=== PATIENT | female | born 1995 | race Caucasian/White ===

== ENCOUNTER 2020-11-18 10:59 | Emergency (ER) | payer OTHER ==
[~2020-11-18] VITALS: Ht 165.1 cm; Wt 64.5 kg
[2020-11-18] MEDS ORDERED: birth control (11:17)
--- OUTSIDE RECORDS SUMMARY | 2020-11-18 11:25 | CCD ---
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 Name Role Phone Hospital Lab, [facility] Unavailable Unavailable DARWIN MORALES MD Unavailable Unavailable DARWIN MORALES MD Unavailable Unavailable PIPDARWIN GROSSMAN MD Unavailable Unavailable DARWIN MORALES MD Unavailable Unavailable PIPDARWIN GROSSMAN MD Unavailable Unavailable NON, PHYSICIAN STAFF Unavailable Unavailable Chepe, J Modesto PA-C Unavailable Unavailable Chepe, J Modesto PA-C Unavailable Unavailable Chepe, J Modesto PA-C Unavailable Unavailable Chepe, J Modesto PA-C Unavailable Unavailable Chepe, J Modesto PA-C Unavailable Unavailable Chepe, J Modesto PA-C Unavailable Unavailable Chepe, J Modesto PA-C Unavailable Unavailable Chepe, J Modesto PA-C Unavailable Unavailable Chepe, J Modesto PA-C Unavailable Unavailable Chepe, J Modesto PA-C Unavailable Unavailable Chepe, J Modesto PA-C Unavailable Unavailable Re-disclosure Warning The records that you are about to access may contain information from federally-assisted alcohol or drug abuse programs. If such information is present, then the following federally mandated warning applies: This information has been disclosed to you from records protected by federal confidentiality rules (42 CFR part 2). The federal rules prohibit you from making any further disclosure of this information unless further disclosure is expressly permitted by the written consent of the person to whom it pertains or as otherwise permitted by 42 CFR part 2. A general authorization for the release of medical or other information is NOT sufficient for this purpose. The Federal rules restrict any use of the information to criminally investigate or prosecute any alcohol or drug abuse patient.The records that you are about to access may contain highly sensitive health information, the redisclosure of which is protected by Article 27-F of the [facility] Public Health law. If you continue you may have access to information: Regarding HIV / AIDS; Provided by facilities licensed or operated by the [facility] Office of Mental Health; or Provided by the [facility] Office for People With Developmental Disabilities. If such information is present, then the following [facility] mandated warning applies: This information has been disclosed to you from confidential records which are protected by state law. State law prohibits you from making any further disclosure of this information without the specific written consent of the person to whom it pertains, or as otherwise permitted by law. Any unauthorized further disclosure in violation of state law may result in a fine or custodial sentence or both. A general authorization for the release of medical or other information is NOT sufficient authorization for further disc losure. Allergies and Adverse Reactions Type Description Substance Reaction Status Data Source(s ) Drug Class PENICILLINS Penicillin Rash [facility] Encounters Encounter Providers Location Date Indications Data Source(s ) Emergency Attender: DARWIN MORALES MD 2020 04:13:00 PM EST - 11/17/2020 11:24:00 PM EST Elevated white blood cell count, unspecified [facility] Elevated white blood cell count, unspeci fied Patient discharged. Outpatient Attender: [facility] 11/17/2020 01:5 7:00 PM [facility] Emergency Attender: Modesto LENTZCConsultant: STAFF NO N 11/17/2020 11:40:00 AM EST - 11/17/2020 05:53:00 PM EST [facility] Patient discharged. Medications Medication Brand Name Start Date Product Form Dose Route Admi nistrative Instructions Pharmacy Instructions Status Indications Reaction Description Data Source(s) Acetaminophen 325 MG Oral Tablet acetaminophen (TYLENO L) tablet 650 mg acetaminophen (TYLENOL) tablet 650 mg 11/17/2020 10:30:00 PM EST 65 0 mg Oral completed 650 mg, Oral, O nce, Lizzette 11/17/20 at 2230, For 1 dose
Maximum daily dose of acetaminophen from all sources 75 mg/kg/day
[facility] Medication administered onsite Insurance Providers Payer name Policy type / Coverage type Policy ID Covered republican ID Covered republican's relationship to easton Policy [place] Plan Information [facility] [id number] Self [id number] [facility] [employer] - O/P [id number] [id number] [facility] [employer] - O/P [id number] 19 [id number] [facility] [id number] SF2 [id number] [facility] [id number] SP [id number] [facility] [id number] [place] [id number] Self [id number] [employer] [place] [id number] S [id number] [facility] [id number] SF2 [id number] Problems, Conditions, and Diagnoses Code Display Name Description Problem Type Effective Dates Data Source(s) R19.02 Left upper quadrant abdominal swelling, mass and lump Left upper quadrant abdominal swelling, mass and lump Diagnosis 11/17/2020 08:10:00 PM [facility] D72.829 Elevated white blood cell count, unspeci fied Elevated white blood cell count, unspecified Diagnosis 11/17/2020 08:10:00 PM [facility] 2 weeks rash, CP, SOB, N/V/D, abdominal pain - r/o hemangioma 2 weeks rash, CP, SOB, N/V/D, abdominal pain - r/o hemangioma Diagnosis 2020 08:10:00 PM [facility] Results ID Date Data Source [id number] 11/18/2020 10:04:00 AM [facility] [address] [place] [address] PHONE: [phone] FAX: [phone] Name .................. : TRAVIS FUCHS Acct Number.................. : [id number] ROOM. ................. : TR-02 MR Number ................... : [id number] Stay type ............. : E/R Discharge Date......... ... : 11/17/20 Admit Date ....... .. : 11/17/20 Admit Phys .................... : CHEPE LETY Date of ....... : 1995 Family Phys ................... : NON STAFF Phone .................. : [phone] Age ................................ : 25 Film# .................. .:[id number] Sex ................................. : F Unsigned transcriptions are preliminary reports and do not represent a medical or legal document CT ABD & PELVIS W/ IV ONLY [id number] COMPLETE:11/17/20 19:34 [facility] 4136 Reason(s): N/V/D w/ elevated WBC CT OF THE ABDOMEN AND PELVIS WITH CONTRAST: INDICATION: Generalized abdominal pain. FINDINGS: There is normal contrast-enhanced CT appearance of the liver, pancreas, adrenal glands and kidneys. The spleen contains a well-circumscribed 4.4 cm low attenuation lesion that is not a simple cyst. Late phase of enhancement may have missed the peripheral nodule enhancement of a hemangioma. No gallbladder wall thickening or biliary duct dilatation. The visualized bowel is normal in caliber. There is liquid stool throughout the colon and rectum. No bowel wall thickening is appreciated. The appendix is normal. The bladder and pelvic organs appear normal. No acute osseous abnormality. No lymphadenopathy. IMPRESSION: 1. There is a 4.4 cm lesion in the spleen. This is not a simple cyst and is not definitively a hemangioma. Differential considerations include hemangioma, malignancy, less likely infection or prior infarct. Page 1 of 2 [facility] [address] [place] [address] PHONE: [phone] FAX: [phone] Name .................. : TRAVIS FUCHS Acct Number.................. : [id number] ROOM. ................. : TR-02 MR Number ................... : [id number] Stay type ............. : E/R Discharge Date......... ... : 11/17/20 Admit Date ......... : 11/17/20 Admit Phys .................... : CHEPE LETY Date of ....... : 1995 Family Phys ................... : NON STAFF Phone .................. : [phone] Age ................................ : 25 Film# .................. .:[id number] Sex ................................. : F Unsigned transcriptions are preliminary reports and do not represent a medical or legal document CT ABD & PELVIS W/ IV ONLY [id number] COMPLETE:11/17/20 19:34 [facility] 4136 Reason(s): N/V/D w/ elevated WBC I would recommend further evaluation starting with nonemergent abdominal ultrasound. This lesion may be difficult to evaluate by ultrasound g iven the superior location within the spleen. Follow up 3-phase CT scan of the abdomen in 3 months also suggested. 2. Liquid stool throughout the colon and rectum. Correlate with symptoms of diarrhea. While performing the above CT examination, radiation dose reduction was accomplished utilizing automated exposure control, adjusting of the mA and kV based on the patient's body size and/or the use of imperative reconstructive techniques. CT dose: 953.4 mGycm Electronically Reviewed and Signed By Augustin Pryor M.D. , 11/18/20 10:04, [place] Transcribe Initials: DZ , Transcribe Date: 11/18/20 02:38, Dictation Date: Copy for: SRI CHAKRABORTY via fax Copy for: CHEPE Arita via fax Copy for: EMERGENCY DEPT via modem Copy for: 710 MED REC DISCHARGED Page 2 of 2 Name Value Range Interpretation Code Description Data Bonnie rce(s) Supporting Document(s) ID Date Data Source [id number] 11/18/2020 10:03:00 AM EST [facility] [address] [place] [address] PHONE: [phone] FAX: [phone] Name .................. : TRAVIS FUCHS Acct Number.................. : [id number] ROOM. ................. : TR-02 MR Number ................... : [id number] Stay type ............. : E/R Discharge Date......... ... : 11/17/20 Admit Date ....... .. : 11/17/20 Admit Phys .................... : CHEPE DAVIDSON Date of ....... : 1995 Family Phys ................... : NON STAFF Phone .................. : [phone] Age ................................ : 25 Film# .................. .:[id number] Sex ................................. : F Unsigned transcriptions are preliminary reports and do not represent a medical or legal document CT CTA CHEST NON-CORONARY W C [id number] COMPLETE:11/17/20 19:34 [facility] 4135 Reason(s): cp w/ sob w/ exertion CTA OF THE CHEST WITH CONTRAST: INDICATION: Chest pain with shortness of breath on exertion. FINDINGS: The neck base is clear. The lungs are clear. The heart is normal in size. The thoracic aorta is normal in size. No lymphadenopathy. No pulmonary embolism. Please see separate report for upper abdominal details. No acute osseous abnormality. IMPRESSION: No pulmonary embolism. No acute pulmonary process. While performing the above CT examination, radiation dose reduction was accomplished utilizing automated exposure control, adjusting of the mA and kV based on the patient's body size and/or the use of imperative reconstructive techniques. CT dose: 953.4 mGycm Contrast agent in mL: 75 Isovue 370 Method of administration: Intravenous Electronically Reviewed and Signed By Page 1 of 2 [place] [address] PHONE: [phone] FAX: [phone] Name .................. : TRAVIS FUCHS Acct Number.................. : [id number] ROOM. ................. : TR- MR Number ................... : [id number] Stay type ............. : E/R Discharge Date......... ... : 11/17/20 Admit Date ......... : 11/17/20 Admit Phys .................... : CHEPE LETY Date of ....... : 1995 Family Phys ................... : NON STAFF Phone .................. : [phone] Age .......................... ...... : 25 Film# .................. .:[id number] Sex ................................. : F Unsigned transcriptions are preliminary reports and do not represent a medical or legal document CT CTA CHEST NON- CORONARY W C 85637 COMPLETE:11/17/20 19:34 [facility] 4135 Reason(s): cp w/ sob w/ exertion Augustin Pryor M.D. , 11/18/20 10:03, [place] Transcribe Initials: BRYANT , Transcribe Date: 11/18/20 02:36, Dictation Date: Copy for: SRI CHAKRABORTY via fax Copy for: CHEPE Arita via fax Copy for: EMERGENCY DEPT via mode Copy for: 710 MED REC DISCHARGED Page 2 of 2 Name Value Range Interpretation Code Description Data Bonnie rce(s) Supporting Document(s) ID Date Data Source [id number] 11/17/2020 11:40:00 AM EST [facility] 1 OrderSheet [facility] Emergency Department [address] [place] [address] Phone #: ext- [phone] 11/17/2020 11:27 [id number] Sex: F : 1995 Age: 25yWEIGHT:64.4 kg (S) HEIGHT:65 inches (S) BMI:23.7ALLERGIES: PenicillinsCHIEF COMPLAINT: "hurts all over", possible, COVID-19 exposure:DIAGNOSIS: Problem, Cystitis, LeukocytosisLAB ORDERSOrder Description Priority Entered Acknowledged InitialedCBC w Diff STAT 12:04 11/17/2020 12:40 Matthew Browne R.N. P.A.-C;CMP STAT 12:04 11/17/2020 12:40 Matthew Browne R.N. P.A.-C;Lipase STAT 12:04 11/17/2020 12:40 Matthew Browne R.N. P.A.-C;PT/PTT STAT 12:04 11/17/2020 12:40 Matthew Browne R.N. P.A.-C;Troponin-T STAT 12:04 11/17/2020 12:40 Matthew Browne R.N. P.A.-C;D-Dimer STAT 12:04 11/17/2020 12:40 Matthew Browne R.N. P.A.-C;TSH STAT 12:04 11/17/2020 12:40 Matthew Browne R.N. P.A.- C;Influenza Nasal A B STAT 12:04 11/17/2020 12:40 Matthew Browne R.N. P.A.-C;Rapid Strep Screen STAT 12:04 11/17/2020 12:40 Matthew Browne R.N. P.A.-C;HCG Serum Quant STAT 12:04 11/17/2020 12:40 Matthew Browne R.N. P.A.-C;CORONAVIRUS STAT 12:04 11/17/2020 12:40 Hollie, 2 OrderSheet [facility] Emergency Department [address] [place] [address] Phone #: ext- [phone] 11/17/2020 11:27 Patient: SHILA ROBLES Sex: F : 1995 Age: 25yCOVID-19 Matthew Bean R.N.(Symptomatic as P.A.-C;Defined by CDC)([id number])( Unknown if FristTest) (Hospitalized)(Unknown if) (NotResident inCongregate CareSetting) (Employedin HealthcareSetting)Lactic Acid STAT 13:42 11/17/2020 13:49 Matthew Browne R.N. P.A.-C;Blood Culture STAT 14:33 11/17/2020 15:01 Frieda,q10m X2 (Sched Matthew Garcia RN14:33 11/17/2020) P.A.-C;Blood Culture STAT 14:33 11/17/2020 15:01 Frieda,q10m X2 (Sched Matthew Garcia RN14:43 11/17/2020) P.A.- C;Culture, Urine STAT 14:33 11/17/2020 14:36 Frieda,(Urine, Clean Matthew Garcia RNCatch) P.A.-C;Urinalysis (Clean STAT 14:34 11/17/2020 14:36 Frieda,Catch) Matthew Garcia RN P.A.-C;Monospot STAT 15:39 11/17/2020 15:54 Matthew Browne R.N. P.A.-C;COVID-19 CAH STAT 15:54 11/17/2020 16:33 Hollie,(Symptomatic as Matthew Bean R.N.Defined by CDC) P.A.-C;([id number]) (FirstTest) (NotHospitalized) (Not) (NotResident inCongregate CareSetting) (NotEmployed inHealthcare Setting) NOTES: Potential transfer 3 OrderSheet [facility] Emergency Department [address] [place] [address] Phone #: ext- [phone] 11/17/2020 11:27 Patient: SHILA ROBLES Sex: F : 1995 Age: 25yDIAGNOSTIC STUDY ORDERSOrder Description Priority Entered Acknowledged InitialedCT CTA CHEST STAT 13:25 11/17/2020 13:27 Hollie,(NONCOR) W CON Matthew Bean R.N.INC PP P.A.-C;(Oxygen?(No))(IV?(Yes)) Reason for Study: cp w/ sob w/ exertionCT Abd PEL W/ IV STAT 13:25 11/17/2020 13:27 Hollie,Contrast Only Matthew Bean R.N.(Oxygen?(No)) P.A.-C;(IV?(Yes)) Reason for Study: N/V/D w/ elevated WBCMEDICATION/IV/DRIP/FLUID ORDERSOrder Description Priority Entered Acknowledged InitialedIV NS : Bolus 1000 12:04 11/17/2020 12:42 Hollie,mL, then 75 mL/hr Matthew Bean R.N. P.A.-C;Zofran IVP 4 mg 12:04 11/17/2020 Initialed: 12:41 Vikas Browne R.N. Refused: 12:41 Zofran IVP 4 mg was P.A.-C; refused by patient because nausea is gone.Benadryl 25 mg IVP 12:04 11/17/2020 12:42 Sorbero,X1 dose: 25 mg Matthew Bean R.N.(NOW x1) P.A.- C;Rocephin 16:11 11/17/2020 16:33 Sorbero,(1gm/50mL) IVPB Matthew Bean R.NMaren1000 mg with P.A.-C;Dextrose 50 mlspike bag (D5W) Reason for ordering with alerts: Benefits outweigh risks -- 16:11 11/17/2020 Matthew Hernandez.AMaren-CGENERAL ORDERSOrder Description Priority Entered Acknowledged InitialedBlood Pressure 12:04 11/17/2020 12:08 Jessica EDMonitor Cathy Yao P.A.-C; Roll1Uyejfre Monitor 12:04 11/17/2020 12:08 Maynard ED(continuous) Cathy Yao 4 OrderSheet [facility] Emergency Department [address] [place] [address] Phone #: ext- [phone] 11/17/2020 11:27 Patient: SHILA ROBLES Sex: F : 1995 Age: 25y P.A.-C; Yuel2LXM 12:04 11/17/2020 12:08 Jessica ED Cathy Yao P.A.-C; Chpm2FVP 12:04 11/17/2020 12:40 Matthew BrowneN. P.A.-C;Obtain Old EKG 12:04 11/17/2020 12:40 Matthew Browne.N. P.A.-C;Obtain Old Records 12:04 11/17/2020 12:40 Matthew Browne.N. P.A.-C;Pulse oximeter 12:04 11/17/2020 12:40 Hollie(Continuous) Matthew HeckNMaren P.A.-C;Saline Lock 12:04 11/17/2020 12:40 Sorbero, Matthew Bean R.N., P.A.-C;Vitals 12:04 11/17/2020 12:40 Matthew Browne R.N., P.A.-C;[Electronically signed by Vikas Browne R.N. (19:08 0 11/17/2020)][Electronically signed by Matthew Fierro P.A.-C (22:46 11/17/2020)][Electronically locked by Vikas Browne R.N. (19:08 11/17/2020)] Name Value Range Interpretation Code Description Data Bonnie rce(s) Supporting Document(s) ID Date Data Source [id number] 11/17/2020 11:40:00 AM EST [facility] 1 Medication Reconciliation Report [facility] Emergency Department [address] [place] [address] Phone #: ext- [phone] 11/17/2020 11:27 Patient: SHILA ROBLES Sex: F : 1995 Age: 25yWeight: 64.4 kgHeight/Length: 65 in.BMI: 23.7ALLERGIES: PenicillinsThe patient's Home Medications are listed below:THE FOLLOWING MEDICATIONS NEED TO BE RECONCILED: Control PillsThe source(s) of the original Home Medication information:Not obtained.The following Medications were given to the patient in the Emergency Department:IV NS IV Fluids bolus 0, then 1000 mL/hr, administered: 12:42 1Benadryl [IVP] IVP 25 mg, administered: 12:42 11/17/2020IV NS IV Fluids bolus 0, then 75 mL/hr, administered: 13:48 1ROCEPHIN (1GM/50ML) [IVPB] IVPB bolus 0, then 1 gm 100 mL/hr, administered: 16:33 11/17/2020The following Medications were prescribed to the patient:None. Name Value Range Interpretation Code Description Data Bonnie rce(s) Supporting Document(s) ID Date Data Source [id number] 11/17/2020 11:40:00 AM EST [facility] 1 Medication Administration Record [facility] Emergency Department [address] [place] [address] Phone #: ext- [phone] 11/17/2020 11:27 Patient: SHILA ROBLES Sex: F : 1995 Age: 25yWeight: 64.4 kgHeight/Length: 65 inBMI: 23.7ALLERGIES: Penicillins Date/Time Medication Administered Medication OrderedStart IV NS IV NS : Bolus 1000 mL, then 7512:42 11/17/2020 Dose: IV Fluids mL/Vikas Loyd, R.N. Rate: 1000 mL/hr over 1 hour(s)---- Dispensed: 1000 mL bagStop Site: #1 left AC13:48 11/17/2020Vikas valentin, R.N.Start IV NS IV NS : Bolus 1000 mL, then 7513:48 11/17/2020 Dose: IV Fluids mL/Vikas Loyd, R.N. Rate: 75 mL/hr over 13 hour(s)---- Dispensed: 1000 mL bagStop Site: #1 left AC17:39 11/17/2020Vikas valentin, R.N.Given BENADRYL [IVP] (DIPHENHYDRAMINE Benadryl 25 mg IVP X1 dose: 2512:42 11/17/2020 HCL) mg (NOW x1)Vikas Browne, R.N. Dose: 25 mg IVP Site: #1 left ACStart ROCEPHIN (1GM/50ML) [IVPB] Rocephin (1gm/50mL) IVPB 258666:33 11/17/2020 (CEFTRIAXONE SODIUM) mg with Dextrose 50 ml spike Vikas Richards R.N. Dose: 1 gm IVPB (D5W)---- Rate: 100 mL/hr over 30 minute(s)Stop Dispensed: 50 mL bag17:38 11/17/2020 Site: #1 left Vikas Love R.N. Name Value Range Interpretation Code Description Data Bonnie rce(s) Supporting Document(s) ID Date Data Source [id number] 11/17/2020 11:40:00 AM EST [facility] 1 General Instructions [facility] Emergency Department [address] [place] [address] Phone #: ext- [phone] 11/17/2020 11:27 Patient: SHILA ROBLES Sex: F : 1995 Age: 25ySevere leukocytosis. No bandemia.Acute cystitis with hematuria. ;abnormal CT of the abdomen and pelvis. (Noted lesion on spleen (? infections vs malagnant vs hemagioavs prior infarct).). ADDITIONAL INFORMATIONFemale Bladder Infection (Child)A bladder infect ion is when bacteria cause the bladder to be inflamed. The bladder holds urine. Atube called the urethra takes urine from the bladder out of the body. Sometimes bacteria can travel upthe urethra. This causes the infection. Girls have bladder infections more often than boys. This isbecause the urethra is much shorter in girls than in boys.The most common cause of bladder infections in children is bacteria from the bowels. The bacteriacan get onto the skin around the urethra, and then into the urine. From there it can travel up to thebladder. This can happen because of: Poor cleaning after using the toilet or during a diaper change Not completely emptying the bladder Constipation that prevents the bladder from emptying completely Not drinking enough fluids to urinate often Irritation of the urethra from soaps or tight clothesSymptoms of a bladder infection include the need to urinate often and urgently. It may be painful. Theurine may have a strong smell. It may be dark, tinted with blood, or cloudy. Your child may not beable to hold urine and may wet the bed or her clothes. Your child may also have a fever and bellypain. Some children don't have symptoms. A baby may be fussy and not able to be soothed. Shemay cry when urinating. Your baby may also feed less or be less active.A bladder infection is treated with antibiotics. The healthcare provider may also prescribe a medicine to treat pain. Children get better from a bladder infection quickly.In many cases a bladder infection will come back. It's important to take steps to prevent it (seebelow). 2 General Instructions [facility] Emergency Department [address] [place] [address] Phone #: ext- [phone] 11/17/2020 11:27 Patient: SHILA ROBLES Sex: F : 1995 Age: 25yHome careThe healthcare provider will prescribe medicine to treat the infection. Follow all instructions for givingthis medicine to your child. Use the medicine as instructed every day until it is gone. Don't stop givingit to your child if she feels better.Don't give aspirin (or medicine that contains aspirin) to a chi ld younger than age 19 unless directedby your child's provider. Taking aspirin can put your child at risk for Erika syndrome. This is a rare butvery serious disorder. It most often affects the brain and the liver.For children ages 2 and up: If your child's healthcare provider says it's OK, you can giveacetaminophen or ibuprofen for pain, fever, fussiness, or discomfort. If your child has chronic liver orkidney disease, talk with the healthcare provider before giving these medicines. Also talk with theprovider if your child has ever had a stomach ulcer or GI bleeding, or is taking blood thinners.General care Keep track of how often your child urinates. Note the urine color and amount. Tell your child to urinate often. Tell her to completely empty her bladder each time. This will help flush out bacteria. Have your child wear loose clothes and cotton underwear. Make sure that your child drinks enough fluids. Give your child cranberry juice if advised by the healthcare provider.Prevention Make sure your child wipes from front to back after using the toilet. Wipe your baby from front to back during diaper changes. Make sure diapers aren't tight. If you use cloth diapers, use cotton or wool protectors rather than nylon or rubber pants. Change soiled diapers right away. Make sure your child drinks plenty of fluids. Or make sure your baby feeds often. This is to p revent dehydration. Make sure your child urinates when needed, and does not hold it in. Don't give your child bubble baths. They can irritate the urethra.Follow-up careFollow up with your child's healthcare provider, or as advised. If a culture was done, you will be told of 3 General Instructions [facility] Emergency Department [address] [place] [address] Phone #: ext- [phone] 11/17/2020 11:27 Patient: SHILA ROBLES Sex: F : 1995 Age: 25yany findings that may affect your child's care.Call [phone] any of these occur: Trouble breathing Trouble waking up Fainting or loss of consciousness Fast heart rate SeizureWhen to seek medical adviceCall your child's healthcare provider right away if any of these occur: Fever of 100.4F (38C) or higher, or as directed Symptoms don't get better after 24 hours of treatment Vomiting or inability to keep down medicine Pain gets worse Pain in the low back, belly, or side Foul-smelling urine Yellow color to the skin or eyes (jaundice) [id number] [employer]. [address] [place] [address], [place] [address]. All rights reserved. This information is not intended as asubstitute for professional medical care. Always follow your healthcare professional's instructions.Blood in the Urine 4 General Instructions [facility] Emergency Department [address] [place] [address] Phone #: ext- [phone] 11/17/2020 11:27 Patient: SHILA ROBLES Sex: F : 1995 Age: 25yBlood in the urine (hematuria) has many possible causes. If it occurs after an injury (such as a caraccident or fall), it is most often a sign of bruising to the kidney or bladder. Common causes of bloodin the urine include urinary tract infections, kidney stones, inflammation, tumors, or certain otherdiseases of the kidney or bladder. Menstruation can cause blood to appear in the urine sample, but itis not coming from the urinary tract.If only a tiny (trace) amount of blood is present, it will show up on the urine test, even though the urinemay be yellow and not pink or red. This may occur with any of the above conditions, as well as heavyexercise or high fever. In this case, your healthcare provider may want to repeat the urine test onanother day. This will show if there is still blood in the urine. If there is, then other tests can be doneto find out the cause.Home careFollow these home care guidelines: If your urine does not look bloody (pink, brown, or red) then you don't need to restrict your activity in any way. If you can see blood in your urine, rest and don't do any strenuous activity until your next exam. Don't use aspirin, blood thinners, or anti-platelet or anti-inflammatory medicines. These include ibuprofen and naproxen. These thin the blood and may increase bleedin g. Call your healthcare provider to talk about using these medicines.Follow- up care 5 General Instructions [facility] Emergency Department [address] [place] [address] Phone #: ext- [phone] 11/17/2020 11:27 [id number] Sex[facility] F : 1995 Age: 25yFollow up with your healthcare provider, or as advised. If you were injured and had blood in yoururine, you should have a repeat urine test in 1 to 2 days. Contact your provider for this test.A radiologist will review any X-rays that were taken. You will be told of any new findings that mayaffect your care.When to seek medical adviceCall your healthcare provider right away if any of these occur: Bright red blood or blood clots in the urine (if you did not have this before) Weakness, dizziness or fainting New groin, belly, or back pain Fever of 100.4F (38C) or higher, or as directed by your provider Repeated vomiting Bleeding from the nose or gums or easy bruising [id number] [employer]. [address] [place] [address]. All rights reserved. This information is not intended as asubstitute for professional medical care. Always follow your healthcare professional's instructions. You have been given the following additional information: Bladder Infection, Female (Child) Hematuria(Electronically signed by Matthew Fierro P.A.-C 11/17/2020 22:46) Name Value Range Interpretation Code Description Data Bonnie rce(s) Supporting Document(s) ID Date Data Source [id number] 11/17/2020 11:40:00 AM EST [facility] 1 Clinical Report - Nurses [facility] Emergency Department [address] [place] [address] Phone #: ext- [phone] 11/17/2020 11:27 Patient: SHILA ROBLES Sex: F : 1995 Age: 25yTRIAGEArrived by private vehicle. Historian: patient.Acuity: LEVEL 3.Chief Complaint: CHILLS, MUSCLE ACHES, HEADACHE, COUGH, NAUSEA, VOMITING, DIARRHEAand RASH.Alert. No acute distress.Onset. (2 weeks ago). ( PT says 2 weeks ago she began having nausea, ROLDAN, a dry cough, and a rash onher chest and legs. The symptoms have worsened over the past 2 weeks and she says she gets out ofbreath easily. She was concerned that it was not improving so she decided to get checked out.).Treatment SUPERVISOR PAIRING AND INSPECTING:None.SEPSIS SCREEN: SIRS SCREEN NEGATIVE. SEPSIS SCREEN NEGATIVE. No suspected or confirmedsigns of infection present.RENZO COMA SCORE: 15- eyes open- spontaneous (4); best verbal response- oriented (5); bestmotor response- obeys commands (6). --11:35 11/17/20 Rachelle Ruff R.N.11:28 11/17/20. BP: 114/67. MAP: 82. HR: 79. RR: 18. O2 saturation: 100%. Temp: 98.1 F. Pain levelnow: 0/10. --11:35 11/17/20 Rachelle Ruff R.N.Weight: 64.4 kg stated. Height/Length: 65 inches Per Patient. BMI: 23.7. --11:33 11/17/20 Rachelle Ruff R.N.MedicationsBirth Control Pills. --11:32 11/17/20 Rachelle Ruff R.N.AllergiesPenicillins. --11:32 11/17/20 Rachelle uRff R.N.PROBLEMS:Migraine Headache. --11:33 11/17/20 Rachelle Ruff R.N.ADDITIONAL SURGERIES:Jaw surgery. --11:33 11/17/20 Rachelle Ruff R.N.Hist ory 2 Clinical Report - Nurses [facility] Emergency Department [address] [place] [address] Phone #: ext- [phone] 11/17/2020 11:27 Patient: SHILA ROBLES Sex: F : 1995 Age: 25y PAST MEDICAL HX: Immunizations: up-to-date. Last normal menstrual period- 1 weeks ago. Denies current . SOCIAL HX: Never smoker. No alcohol use or drug use. She was offered HIV testing but declined and hepatitis C testing but declined. She has not traveled outside the [place] Infectious disease exposure: The patient was not exposed to C-diff, MRSA, VRE, CRE or Coronavirus. SELF HARM ASSESSMENT: Self harm assessment was performed. The patient answered "no" to the question(s) "Have you recently felt down, depressed, or hopeless?", "Do you have thoughts of harming or killing yourself?", "Do you have a plan for harming or killing yourself?", "Have you recently had thoughts about harming or killing others?", "Do you have any dangerous items in your possession?", "Have you noticed less interest or pleasure in doing things?", "Are you here because you tried to hurt yourself?" and "Have you ever tried to hurt yourself before today?". ABUSE ASSESSMENT: No report of abuse. NUTRITIONAL RISK ASSESSMENT: The nutritional risk assessment revealed no deficiencies. FUNCTIONAL ASSESSMENT: Functional assessment: no impairments noted. LEARNING NEEDS ASSESSMENT: The learning needs assessment revealed no barriers. FALL RISK ASSESSMENT: Fall risk assessment completed. No risk factors identified. SKIN INTEGRITY ASSESSMENT: Skin integrity risk assessment completed. No skin integrity risk identified. --11:35 11/17/20 Rachelle Ruff R.N. Interventions Identification and allergy band on patient. To treatment room. --11:35 11/17/20 Rachelle Ruff R.N.PHYSICAL IVKYINROCZ30:53 11/17/20. Ambulatory to room. Patient gowned.GENERAL / NEURO / PSYCH: Alert. Oriented X 4. Appears in no acute distress.HEENT: No facial asymmetry noted. Mucous membranes are pink.RESPIRATORY: Respirations not l abored. Chest nontender. Breath sounds within normal limits.CVS: Capillary refill less than 2 seconds. Pulses within normal limits.GI / : Abdomen soft and nontender and normal bowel sounds.SKIN: Skin intact. Skin is warm and dry. Generalized well-demarcated, petechial skin rash present.Normal skin turgor. --11:53 11/17/20 Vikas Browne R.N.NURSING PROGRESS NOTESReassurance given. Two patient identifiers checked. Call light placed in reach. Patient ready forevaluation- PA notified. --11:35 11/17/20 Rachelle Ruff R.N. 11:54 11/17/20. Patient gowned. Reassurance given. Two patient identifiers checked. Call light 3 Clinical Report - Nurses [facility] Emergency Department [address] [place] [address] Phone #: ext- [phone] 11/17/2020 11:27 Patient: SHILA ROBLES Sex: F : 1995 Age: 25yplaced in reach. Bed placed in lowest position. Brakes of bed on. --11:54 11/17/20 Vikas Russo R.N.Patient ready for evaluation- PA notified. --11:54 11/17/20 Vikas Browne R.N.EKG time: (12:16 11/17/2020). EKG was performed by a tech and shown to the PA. --12:22 11/17/20 Cathy Alvarez ER Mxtn352:29 11/17/20. BP: 109/65. MAP: 79. HR: 92. RR: 20. O2 saturation: 100%. --12:30 11/17/20 Cathy Lepe ER Cxao535:41 11/17/2020 Site #1 started via IV in the left antecubital space with an 20g angiocath, with aseptictechnique and good blood return; one attempt. Saline lock flushed with 10 mL saline. --12:41 11/17/20Vikas Browne R.N.12:41 11/17/2020 Zofran IVP 4 mg was refused by patient because nausea is gone. --12:41 11/17/20Vikas Browne R.NMaren12:42 11/17/2020 Started bag #1 1000 mL IV Fluids IV NS; at 1000 mL/hr over 1 hour(s) via site #1 via IVpump. Allergies verified and confirmed 5 rights. IV patency established. IV site checked: no pain, redness,or swelling. IV flushed thoroughly pre- and post-medication administration. Information reviewed withpatient including reason for taking this medication, signs of allergic reaction and precautions. Verbalizesunderstanding. --12:42 11/17/20 Vikas Browne R.NMaren12:42 11/17/2020 Benadryl (diphenhydrAMINE HCl) IVP 25 mg given over 2 minute(s) via site #1. Allergiesverified and confirmed 5 rights. IV patency established. IV site checked: no pain, redness, or swelling. IVflushed thoroughly pre- and post-medication administration. IVP given by RN. Information reviewed withpatient including reason for taking this medication, signs of allergic reaction, precautions and sedativewarning. Verbalizes understanding. --12:42 11/17/20 Vikas Browne, R.NMaren13:00 11/17/20. BP: 107/74. MAP: 85. HR: 92. RR: 17. O2 saturation: 100%. --13:00 11/17/20 Jessica VogelCathyNORTHER[facility] Bzup743:32 11/17/20. Reassurance given. Reassessment acuity: LEVEL 3. The patient reports nocomplaints, she is calm and resting quietly and she has had no adverse reaction. Overall patient status isimproved- she states feels better.RESPIRATORY: No respiratory distress. Breath sounds normal.CVS: Normal sinus rhythm noted.SKIN: Skin is warm and dry. Skin color within normal limits. Two patient identifiers checked. Call lightplaced in reach. Bed placed in lowest position. Brakes of bed on. --13:43 11/17/20 Vikas Browne R.N.13:48 11/17/2020 Started bag #2 1000 mL IV Fluids IV NS; at 75 mL/hr over 13 hour(s) via site #1 via IVpump. Allergies verified and confirmed 5 rights. IV patency established. IV site checked: no pain, redness,or swelling. IV flushed thoroughly pre- and post-medication administration. Information reviewed withpatient including reason for taking this medication, signs of allergic reaction and precautions. Verbalizes 4 Clinical Report - Nurses [facility] Emergency Department [address] [place] [address] Phone #: ext- [phone] 11/17/2020 11:27 Patient: SHILA ROBLES Sex: F : 1995 Age: 25y understanding. --13:48 11/17/20 Vikas Browne RMarenNMaren 13:48 11/17/2020 IV Fluids IV NS via IV site #1 Discontinued: bag #1 completed. Total amount infused: 1000 mL. IV patency established. IV site checked: no pain, redness, or swelling. IV flushed thoroughly. --13:48 11/17/20 Vikas Browne RMarenNMaren 14:14 11/17/20. BP: 107/66. MAP: 79. HR: 97. RR: 19. O2 saturation: 100%. --14:14 11/17/20 Jessica Prieto ch, MYRIAM Morgan Tech1 Critical value relayed by lab. Critical value received by Radha. Lactate level: 2.5. Critical value read back. Verified lab result. PA notifed of critical value. Orders were not received. --16:01 11/17/20 Radha Malave, KIMBERLEE 16:33 11/17/2020 Started 1 gm of ROCEPHIN (1GM/50ML) (cefTRIAXone Sodium) IVPB in bag #1 50 mL; at 100 mL/hr over 30 minute(s) via site #1. via IV pump. Allergies verified and confirmed 5 rights. IV patency established. IV site checked: no pain, redness, or swelling. IV flushed thoroughly pre- and post-medication administration. Information reviewed with patient including reason for taking this medication, signs of allergic reaction and precautions. Verbalizes understanding. --16:33 11/17/20 Vikas Browne R.N. 17:00 11/17/20. BP: 105/64. MAP: 77. HR: 104. RR: 18. O2 saturation: 99%. --17:00 11/17/20 Radha Malave RN 17:38 11/17/2020 ROCEPHIN (1GM/50ML) IVPB via IV site #1 Discontinued: bag #1 completed. Total amount infused: 50 mL. IV patency established. IV site checked: no pain, redness, or swelling. IV flushed thoroughly. --17:54 11/17/20 Vikas Browne R.N. 17:39 11/17/2020 IV Fluids IV NS via IV site #1 Discontinued: bag #2 completed. Total amount infused: 300 mL. IV patency established. IV site checked: no pain, redness, or swelling. IV flushed thoroughly. --17:54 11/17/20 Vikas Browne RHeather.DISPOSITION / DISCHARGE 17:00 11/17/20. Transferred to [facility]. Report was given to a nurse via a phone call. Report included information regarding patient's treatment and allergies, current and abnormal vital signs and critical, abnormal or pending labs. Report included treatment information regarding medications given or pending; type and amount of IV fluids total volume infused. All questions were answered. Report was acknowledged and care was transferred. (RIC). Patient's personal items; items were transported with the patient. --17:21 11/17/20 Rachelle Ruff R.N. Condition at departure: improved and stable. The goals identified in the patient's plan of care were met. Fall risk assessment completed. No risk factors identified. Transported via ambulance by commercial artist. --17:43 11/17/20 Vikas Browne R.N. 17:42 11/17/20. BP: 111/60. MAP: 77. HR: 97. RR: 16. O2 saturation: 100%. Temp: 99.2 F. Pain level 5 Clinical Report - Nurses [facility] Emergency Department [address] [place] [address] Phone #: ext- [phone] 11/17/2020 11:27 Patient: SHILA ROBLES Sex: F : 1995 Age: 25y now: 0. --17:43 11/17/20 Vikas Browne R.N. Departure time: 17:53 11/17/2020. --17:53 11/17/20 Vikas Browne R.N.Locked/Released at 11/17/2020 19:08 by Vikas Browne R.N. Name Value Range Interpretation Code Description Data Bonnie rce(s) Supporting Document(s) ID Date Data Source [id number] 11/17/2020 11:40:00 AM [facility] 1 Clinical Report - Physicians/Mid Levels [facility] Emergency Department [address] [place] [address] Phone #: ext [phone] 11/17/2020 11:27 Patient: SHILA ROBLES Sex: F : 1995 Age: 25y Time Seen: 11:41 11/17/2020; initial patient contact, initial documentation. Arrived- By private vehicle. Historian- patient. Disposition decision: 16:22 11/17/2020.HISTORY OF PRESENT ILLNESS Chief Complaint: "HURTS ALL OVER" and possible COVID-19 EXPOSURE. This started about 2 weeks ago and is still present. The patient has had nausea, a cough, fever, chills and muscle aches. She has had a skin rash and headache, vomiting and diarrhea. 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 (PT says 2 weeks ago she began having nausea, ROLDAN, a dry cough, and a rash on her chest and legs. The symptoms have worsened over the past 2 weeks and she says she gets out of breath easily. She was concerned that it was not improving so she decided to get checked out.).REVIEW OF SYSTEMSLast normal menstrual period was 1 week ago. She has had fatigue. No weight loss, photophobia, sinuspain, toothache or weakness. No dizziness, palpitations, calf pain, abdominal pain or bloody stools. Nourinary incontinence, joint pain, enlarged lymph nodes, tick bite or back pain.PAST HISTORYSee nurses notes. Problems: Migraine Headache. Additional Surgeries: Jaw surgery. Immunizations: Immunization status is up-to-date. Medications: Control Pills. Allergies: Penicillins.SOCIAL HISTORYNever smoker. No alcohol use or drug use. Recent travel.ADDITIONAL NOTESThe nursing notes have been reviewed.PHYSICAL EXAM 2 Clinical Report - Physicians/Mid Levels [facility] Emergency Department [address] [place] [address] Phone #: ext- [phone] 11/17/2020 11:27 Patient: SHILA ROBLES Sex: F : 1995 Age: 25y Vital Signs: 11/17/2020 11:28 BP: 114/67. MAP: 82. HR: 79. RR: 18. O2 saturation: 100%. Temp: 98.1 F. Pain level now: 0/10. Have been reviewed. Oxygen saturation normal. Appearance: Alert. No acute distress. Eyes: Eyelids appear normal to inspection. Corneas appear normal to inspection. EOMs intact. Periorbital areas appear normal to inspection. ENT: Normal ENT inspection. Airway intact. TM's normal. Ears normal. Nose normal. Nares normal. Pharynx normal. Moist mucous membranes. Uvula midline. Voice normal. Neck: Normal inspection. Neck supple. CVS: Normal heart rate and rhythm. No JVD present. Pulses normal. Capillary refill normal. Strong peripheral pulses. Heart sounds normal. Pulses: right radial 2+; left radial 2+; right dorsalis pedis 2+; left dorsalis pedis 2+; right posterior tibial 2+; left posterior tibial 2+. Respiratory: Chest normal on inspection. No respiratory distress. Unlabored respirations. Lungs clear. Good chest movement. Breath sounds normal and equal. Chest nontender. Abdomen: Normal inspection. Soft and nontender. Bowel sounds normal. No distention. Skin: Skin warm and dry. No rash. Extremities: Extremities exhibit normal ROM. No lower extremity edema. Neuro: Awake. Alert. Mood/affect normal. Speech normal. No motor deficit. No sensory deficit. Psych: Cognition normal. Thought process and content normal. Insight and judgement normal.LABS, X-RAYS, AND EKGEKG: Normal EKG. Normal sinus rhythm. Rate: 93. Discussed and reviewed wiht/by attending.CT Abdomen - Pelvis: Konstantin mckeon Neal - 11/17/2020 3:35:09 PM1. 4.4 cm lesion in the spleen. This is not a simple cyst and is not definitively a hemangioma.Differentialconsiderations include hemangioma, malignancy, less likely infection, or prior infarct. I would recommend further evaluation starting with nonemergent abdominal ultrasound. This lesion may be difficult to evaluate by ultrasound given the superior locati on within the spleen. Follow-up three-phase CT scan of the abdomen in 3 months also suggested. 2. Liquid stool throughout the colon. The study was interpreted by the radiologist. CTA Pulmonary Arteries: Konstantin mckeon Neal - 11/17/2020 3:30:26 PM nad. The study was interpreted by the radiologist. Laboratory Tests: Urinalysis: (EARL: 11/17/2020 14:45) ( MsgRcvd 11/17/2020 15:32) Final results Test Result Flag Units (Reference) URINALYSIS URINALYSIS SOURCE R COLOR yolis (NORMAL: Yello CLARITY hazy (NORMAL: Clear SPEC GRAVITY 1.025 (1.001 - 1.030 pH 5 (5 - 9) GLUCOSE NORM (NORMAL: Negat BILIRUBIN NEG (NORMAL: Negat KETONE 15 A (NORMAL: Negat PROTEIN 15 (NORMAL: Negat NITRITE NEG (NORMAL: Negat 3 Clinical Report - Physicians/Mid Levels [facility] Emergency Department [address] [place] [address] Phone #: ext- [phone] 11/17/2020 11:27 Patient: SHILA ROBLES Sex: F : 1995 Age: 25y BLOOD 10 A (NORMAL: Negat LEUK EST NEG (NORMAL: Negat UROBILINOGEN NOR (less than 1.0 MICROSCOPIC See Below WBC 1 - 3 (NORMAL: NONE RBC 1 - 3 (NORMAL: NO NE EPITHELIAL MODERATE A (NORMAL: NONE BACTERIA Trace (NORMAL: NONE AMORPH SED 3+ (NORMAL: NONECBC w Diff: (EARL: 11/17/2020 12:15) ( MsgRcvd 11/17/2020 12:32) Final results Test Result Flag Units (Reference) CBC W/AUTOMATED DIFF COMPLETE BLOOD COUNT WBC 17.9 H 10/uL (4.2 - 11.0) RBC 5.31 10/uL (4.20 - 5.40) HEMOGLOBIN 15.5 g/dL (12.0 - 16.0) HEMATOCRIT 44.9 % (37.0 - 47.0) MCV 84.6 fL (81.0 - 101) MCH 29.2 pg (27.0 - 34.0) MCHC 34.5 g/dL (31.0 - 36.0) RDW 10.8 L % (11.5 - 14.5) PLATELETS 365 10/uL (150 - 450) MPV 9.1 fL (7.4 - 10.4) NEUT 90.8 H % (37.0 - 80.0) LYMPH 4.7 L % (25.0 - 40.0) MONO 3.6 % (3.0 - 8.0) EOS 0.3 % (0.0 - 7.0) BASO 0.3 % (0.0 - 2.5) %IG 0.3 H % (0.0 - 0.0) %NRBC 0.0 % (0.0 - 0.0) #NEUT 16.24 H 10/uL (2.00 - 6.90) #LYMPH 0.84 10/uL (0.60 - 3.40) #MONO 0.65 10/uL (0.00 - 0.90) #EOS 0.05 10/uL (0.00 - 0.70) #BASO 0.05 10/uL (0.00 - 0.20) #IG 0.06 10/uL (0.00 - 0.10) #NRBC 0.00 10/uL (0.00 - 0.00) MANUAL DIFF NOT INDICATED RBC MORPH NOT INDICATEDCMP: (EARL: 11/17/2020 12:15) ( MsgRcvd 11/17/2020 13:07) Final results Test Result Flag Units (Reference) COMPREHENSIVE METABOLIC PANEL COMPREHENSIVE METABOLIC PANEL SODIUM 136 mEq/L (134 - 153) POTASSIUM 3.8 mEq/L (3.6 - 5.0) CHLORIDE 99 mEq/L (98 - 107) CO2 24 MEQ/L (22 - 30) GLUCOSE 92 MG/DL (70 - 99) BUN 11 MG/DL (7 - 21) CREATININE 0.9 MG/DL (0.7 - 1.5) BUN/CREAT 12 (8 - 27) TOTAL PROTEIN 6.9 G/DL (6.3 - 8.2) ALBUMIN 4.5 G/DL (3.9 - 5.0) GLOBULIN 2.4 GM/DL (2.4 - 3.2) A/G RATIO 1.9 (0.8 - 2.0) CALCIUM 9.6 MG/DL (8.4 - 10.2) 4 Clinical Report - Physicians/Mid Levels [facility] Emergency Department [address] [place] [address] Phone #: ext- [phone] 11/17/2020 11:27 Patient: SHILA ROBLES Sex: F : 1995 Age: 25y TOTAL BILI <0.7 MG/DL (0.2 - 1.3) ALKALINE PHOS 73 U/L (38 - 126) SGOT/AST 18 U/L (5 - 40) SGPT/ALT 24 U/L (7 - 56) ANION GAP 13.0 mmol/L (8.0 - 16.0) AGE 25 yrs NON-AA GFR >60 mL/min AFR AMER GFR >60 mL/min Male GFR Interprentation 20-49 yrs >60 mL/min Lspzfk38-85 yrs >56 mL/min Normal 60-69 yrs >49 mL/min Normal 70-79yrs>42 mL/min Normal 80 and above >35 mL/min Normal Female GFRInterpretation 20-39 yrs >60 mL/min Normal 40-49 yrs >58 mL/minNormal 50- 59 yrs >51 mL/min Normal 60-69 yrs >45 mL/min Tmntci41-15 yrs >39 mL/min Normal 80 and above >32 mL/min NormalLipase: (EARL: 11/17/2020 12:15) ( MsgRcvd 11/17/2020 13:07) Final results Test Result Flag Units (Reference) LIPASE 17 U/L (13 - 60)PT/PTT: (EARL: 11/17/2020 12:15) ( MsgRcvd 11/17/2020 12:52) Final results Test Result Flag Units (Reference) PROTIME 11.7 SECONDS (11.0 - 15.5) INR 0.82 L (0.93 - 1.23) PTT 23.4 L SECONDS (24.8 - 36.7) \\BLDo\\INR INTERPRETATION\\BLDx\\ Therapeutic range for Coumadin andrelated oral anticoagulants. -International Normalized Ratio (INR): 2.0 - 3.0 for VenousThrombosis, Pulmonary Embolus, Tissue heart valves, Acute CO Atrial Fibrillation, Valvular heart diseaseand recurrent Systemic Embolism. -International Normalized Ratio (INR): 2.5 - 3.5 forMechanical Prosthetic valve.Troponin-T: (EARL: 11/17/2020 12:15) ( [facility] 11/17/2020 12:48) Final results Test Result Flag Units (Reference) TROPONIN T <0.01 NG/ML (0.00 - 0.10) TROPONIN T0.1 ng/ml Recommended as the clinical threshold value forTroponin T.D-Dimer: (EARL: 11/17/2020 12:15) ( [facility] 11/17/2020 12:43) Final results Test Result Flag Units (Reference) D- DIMER QUANT 0.39 ug/mL (0.27 - 0.50)TSH: (EARL: 11/17/2020 12:15) ( [facility] 0 11/17/2020 12:56) Final results Test Result Flag Units (Reference) TSH 2.07 uIU/mL (0.47 - 5.01)Influenza Nasal A B: (EARL: 11/17/2020 12:20) ( [facility] 11/17/2020 13:12) Final results Test Result Flag Units (Reference) INFLUENZA A NEGATIVE (NORMAL: NEGAT INFLUENZA B NEGATIVE (NORMAL: NEGAT INFLUENZA A REENTER NEGATIVE (NORMAL: NEGAT INFLUENZA B REENTER NEGATIVE (NORMAL: NEGAT PROCEDURAL CONTROL VALID KIT LOT # _[id number] 11/17/20.131 . KIT EXP DATE _10.08.21 11/17/20. .The Influenza A utilizing an isothermal nucleic acid amplification technology for thequalitativedetection of influenza A and B viral RNA.Negative results do not preclude influenza virus infection and should 5 Clinical Report - Physicians/Mid Levels [facility] Emergency Department [address] [place] [address] Phone #: ext- [phone] 11/17/2020 11:27 Patient: SHILA ROBLES Sex: F : 1995 Age: 25y not beused as the sole basis for diagnosis, treatment or other patient managementdecisions. Rapid Strep Screen: (EARL: 11/17/2020 12:20) ( MsgRcvd 11/17/2020 13:07) Final results Test Result Flag Units (Reference) RAPID STREP NEGATIVE (NORMAL: NEGAT RAPID STREP REENTER NEGATIVE (NORMAL: NEGAT { PROCEDURAL CONTROL VALID ){ KIT LOT # [id number] ){ KIT EXP DATE 10.08.21 )The Strep A 2 assay utilizes isothermal nucleic acid amplification technology fothe qualitative detection of Group A Strep bacterial nucleic acid in throat swabspecimens.All negative test results no longer need to be confirmed with a culture. Follow-up testing requ iring a culture is necessary if clinical symptoms persist, or inthe event of an acute rheumatic fever outbreak. A culture will need to beordered by the Qualified Medical Provider.Negative results do not preclude infection with Group A Strep and should not beused as the sole basis for treatment. Beta-HCG, Quant Serum: (EARL: 11/17/2020 12:15) ( MsgRcvd 11/17/2020 12:56) Final results Test Result Flag Units (Reference) HCG QUANT <0.5 mIU/mL Interpretation: Less than 5 mU/mL: Negative 6- 10 mU/mL: Borderline (suggest repeat in 48 hours) >10: Positive Approx HCG range (mU/mL) Weeks post LMP 5.4-708 mU/mL 3-4 Weeks 217-44097 mU/mL 5-6 Weeks 4059-802291 mU/mL 7-8 Weeks 82785-110793 mU/mL 9-10 Weeks 72719-64635 mU/mL 12-14 Weeks 67954-80700 mU/mL 15-16 Weeks 8240-91882 mU/mL 17-18 Weeks.PROGRESS AND PROCEDURESCourse of Care: VSS, NAD, AOx3, interacting well and appropriately, no use of accessory muscle, able tospeak full sentences, stable, non-toxic looking. Enter room and pt lying peacefully in bed in NAD. Patient stable. Denies any new issues, concerns, or complaints. Pt c/o N/V/D with flucuating rash with fever, cough, and general malaise. Pt does travel to [place] and does take OCP. sts that she notes CP and SOB with exertion. Will order labs and imaigng for furhter eval. Pending resutls. REviewed results; noted elevated WBC. Noted upper limits normal of d-dimer. Wll consider CTA and abd/pelvis for further eval. Enter room and pt lying ad sleeping peacefully in bed. Discuss with pt and she indicates she understands and agrees. Pending results. Reviewed resutls. Noted findings of spleen. ? malignacy vs infection as these could casue elevated WBC and generla malasie. Will transfer for furhter eval of mass of spleen, ? infectiious casue. Attending agrees. Called [facility] and discussed shaila Barry. Able to do au to accept under Dr. Paez 6 Clinical Report - Physicians/Mid Levels [facility] Emergency Department [address] [place] [address] Phone #: [phone] 11/17/2020 11:27 Patient: SHILA ROBLES Sex: F : 1995 Age: 25y Recieved verbal that pts lactic is 2.5. It is elevated. Transfder for unknown infectious etiolgoy, further eval of lesion of spleen (? source of s/s.) Due to leukocytosis, will rx rocephin IV. Will montior. Pt tolerated medicatio n well. Critical care performed (90 minutes). Time includes: direct patient care, patient reassessment, coordination of patient care, interpretation of data (laboratory data), review of patient's medical records, medical consultation, family consultation regarding treatment decisions and documentation of patient care- see progress notes. Disposition: Benefits, risks and alternatives to transfer explained to patient. Transferred to [facility]. UTI (catheter associated) was not present prior to transfer. Pressure ulcer was not present prior to transfer. Vascular infection (catheter associated) was not present prior to transfer.CLINICAL IMPRESSION Severe leukocytosis. No bandemia. Acute cystitis with hematuria. ; abnormal CT of the abdomen and pelvis. (Noted lesion on spleen (? infections vs malagnant vs hemagioa vs prior infarct).).(Electronically signed by Matthew Fierro P.A.-C 11/17/2020 22:46) Name Value Range Interpretation Code Description Data Bonnie rce(s) Supporting Document(s) ID Date Data Source [id number] 11/17/2020 09:33:00 [place] [address] RESPIRATORY CARE REPORT ==== ---------NAME------- NUMBER SEX AGE ADMIT DISC. XRAY# F/C MICH FUCHS [id number] F 25 11/17/20 11/17/20 [id number] SB4 E/R DATE OF : 1995 M/R# [id number] PH#: [phone] TR-02 LOCATION: EMERGENCY DEPT EKG 29968 COMP LETE:11/17/20 13:54 [place] [id number] PHYSICIAN: CHEPE FIERRO [facility] Name Value Range Interpretation Code Description [facility] Supporting Document(s) ID Date Data Source [id number] 11/17/2020 05:31:00 PM [facility] NOT DETECTEDNOT DETECTED{ PROC EDURAL CONTROL VALID KIT LOT # _[id number] 11/17/20.1730.TAD. . . KIT EXP DATE _12.26.20 11/17/20.TAD. . . NORMAL RANGE IS NOT DETECTEDNEGATIVE RESULTS SHOULD BE TREATED PRESUMPTIVE AND, IF INCONSISTENT WITHCLINICAL SIGNS AND SYMPTOMS OR NECESSARY FOR PATIENT MANAGEMENT, SHOULD BETESTED WITH DIFFERENT AUTHORIZED OR CLEARED MOLECULAR TESTS. NEGATIVE RESULTSDO NOT PRECLUDE SARS-CoV -2 INFECTION AND SHOULD NOT BE USED THE SOLE BASISFOR PATIENT MANAGEMENT DECISIONS. Name Value Range Interpretation Code Description Data [facility] Supporting Document(s) ID Date Data Source [id number] 11/17/2020 03:32:00 PM [facility] Name Value Range Interpretation Code Description Data [facility](s) Supporting Document(s) [facility] COL[facility] yolis NORMAL: Yellow [facility] CLARITY hazy NORMAL: Clear [facility] Specific gravity of Urine by Test strip 1.025 1.001 - 1.030 [facility] pH 5 5 - 9 [facility] Glucose [Mass/volume] in Urine by Test strip NORM NORMAL: Negat [facility] Bilirubin.total [Presence] in Urine by Test strip NEG NORMAL: Negative [facility] Ketones [Presence] in Urine by Test strip 15 NORMAL: Negative [facility] Protein [Mass/volume] in Urine by Test strip 15 NORMAL: Negat [facility] Nitrite [Presence] in Urine by Test strip NEG NORMAL: Negative [facility] BLOOD 10 NORMAL: Negative [facility] Leukocyte esterase [Presence] in Urine by Test strip NEG JA L: Negative [facility] Urobilinogen [Mass/volume] in Urine by Test strip NOR less ruthann n 1.0 mg/dL [facility] MICROSCOPIC See Below [facility] WBC 1 - 3 NORMAL: NONE SEEN [facility] Erythrocytes [#/volume] in Urine by Test strip 1 - 3 NORMAL: NON E SEEN [facility] EPITHELIAL MODERATE NORMAL: NONE SEEN A [facility] Bacteria [Presence] in Urine sediment by Light microscopy Tr vivi NORMAL: NONE SEEN [facility] Amorphous sediment [Presence] in Urine sediment by Light tyesha roscopy 3+ NORMAL: NONE SEEN [facility] ID Date Data Source [id number] 11/17/2020 03:55:00 PM EST [facility] Name Value Range Interpretation Code Description Data Bonnie rce(s) Supporting Document(s) Lactic w Rfx (if elevated) 2.5 mmol/L 0.5-2.0 Above high normal [facility] Called to EDDY BRO @ 1554 by Zhanna Pierson. Resultsread back. ID Date Data Source [id number] 11/17/2020 09:00:00 PM EST [facility] Name Value Range Interpretation Code Description Data Bonnie rce(s) Supporting Document(s) LACTIC ACID (LACTATE) [facility] CALLED TO RADHA 11/17/20 @ 1600 [place] [address] CLIA# [id number] SEE SCANNED REPORT ID Date Data Source [id number] 11/17/2020 01:12:00 PM [facility] Name Value Range Interpretation Code Description Data Bonnie rce(s) Supporting Document(s) Influenza virus A Ag [Presence] in Nasopharynx by Immunoassa y NEGATIVE NORMAL: NEGATIVE [facility] Influenza virus B Ag [Presence] in Nasopharynx by Immunoassa y NEGATIVE NORMAL: NEGATIVE [facility] NEGATIVENEGATIVE PROCEDURAL CO NTROL VALID KIT LOT # _[id number] 11/17/20.Boris. . KIT EXP DATE _10.08.21 11/17/20. .The Influenza A & B assay is a rapid molecular in vitro diagnostic testutilizing an isothermal nucleic acid amplification technology for thequalitative detection of influenza A and B viral RNA.Negative results do not preclude influenza virus infection and should not beused as the sole basis for diagnosis, treatment or other patient managementdecisions. ID Date Data Source [id number] 11/17/2020 01:07:00 PM [facility] Name Value Range Interpretation Code Description Data Bonnie rce(s) Supporting Document(s) RAPID STREP NEGATIVE NORMAL: NEGATIVE [facility] RAPID STREP REENTER NEGATIVE NORMAL: NEGATIVE [facility] { PROCEDURAL CONTROL VALID ){ KIT LOT # [id number] ){ KIT EXP DATE 10.08.21 )The Strep A 2 assay utilizes isothermal nucleic acid amplification technology fothe qualitative detection of Group A Strep bacterial nucleic acid in throat swabspecimens.All negative test results no longer need to be confirmed with a culture. Follow-up testing requiring a culture is necessary if clinical symptoms persist, or inthe event of an acute rheumatic fever outbreak. A culture will need to beordered by the Qualified Medical Provider.Negative results do not preclude infection with Group A Strep and should not beused as the sole basis for treatment. ID Date Data Source [id number] 11/17/2020 04:14:00 PM [facility] Name Value Range Interpretation Code Description Data Bonnie rce(s) Supporting Document(s) MONO TEST NEGATIVE NORMAL: NEGATIVE [facility] MONO REENTER NEGATIVE NORMAL: NEGATIVE [facility] { KIT LOT # [id number] ){ KIT EXP DATE 01.04.21 ){ PROCEDURAL CONTROL VALID ) ID Date Data Source [id number] 11/17/2020 01:07:00 PM [facility] Name Value Range Interpretation Code Description Data Bonnie rce(s) Supporting Document(s) Lipase [Enzymatic activity/volume] in Serum or Plasma 17 U/L 13 - 60 [facility] ID Date Data Source [id number] 11/17/2020 01:07:00 PM [facility] Name Value Range Interpretation Code Description Data Bonnie rce(s) Supporting Document(s) COMPREHENSIVE METABOLIC PANEL [facility] COMPREHENSIVE METABOLIC PANEL Sodium [Moles/volume] in Serum or Plasma 136 mEq/L 134 - 153 [facility] Potassium [Moles/volume] in Serum or Plasma 3.8 mEq/L 3.6 - 5.0 [facility] Chloride [Moles/volume] in Serum or Plasma 99 mEq/L 98 - 107 [facility] Carbon dioxide, total [Moles/volume] in Serum or Plasma 24 MEQ/L 22 - 30 [facility] Glucose [Mass/volume] in Serum or Plasma 92 MG/DL 70 - 99 [facility] BUN 11 MG/DL 7 - 21 [facility] Creatinine [Mass/volume] in Serum or Plasma 0.9 MG/DL 0.7 - 1.5 [facility] BUN/CREAT 12 8 - 27 [facility] Protein [Mass/volume] in Serum or Plasma 6.9 G/DL 6.3 - 8.2 [facility] Albumin [Mass/volume] in Serum or Plasma 4.5 G/DL 3.9 - 5.0 [facility] Globulin [Mass/volume] in Serum by calculation 2.4 GM/DL 2.4 - 3.2 [facility] A/G RATIO 1.9 0.8 - 2.0 [facility] Calcium [Mass/volume] in Serum or Plasma 9.6 MG/DL 8.4 - 10.2 [facility] Bilirubin.total [Mass/volume] in Serum or Plasma <0.7 MG/DL 0.2 - 1.3 [facility] Alkaline phosphatase [Enzymatic activity/volume] in Serum or Plasma 73 U/L 38 - 126 [facility] Aspartate aminotransferase [Enzymatic activity/volume] in Serum or Plasma 18 U/L 5 - 40 [facility] Alanine aminotransferase [Enzymatic activity/volume] in Seru m or Plasma 24 U/L 7 - 56 [facility] Anion gap 3 in Serum or Plasma 13.0 mmol/L 8.0 - 16.0 [facility] AGE 25 yrs [facility] al NON-AA GFR >60 mL/min [facility] ital AFR AMER GFR >60 mL/min [facility] Male GFR In terprentation 20-49 yrs >60 mL/min Normal 50-59 yrs >56 mL/min Normal 60-69 yrs >49 mL/min Normal 70-79yrs >42 mL/min Normal 80 and above >35 mL/min Normal Female GFR Interpretation 20-39 yrs >60 mL/min Normal 40-49 yrs >58 mL/min Normal 50-59 yrs >51 mL/min Normal 60-69 yrs >45 mL/min Normal 70-79 yrs >39 mL/min Normal 80 and above >32 mL/min Normal ID Date Data Source [id number] 11/17/2020 12:56:00 PM [facility] Value Range Interpretation Code Description Data Bonnie rce(s) Supporting Document(s) Choriogonadotropin.intact [Units/volume] in Serum or Plasma <0.5 mIU/ mL [facility] Interpr etation: Less than 5 mU/mL: Negative 6-10 mU/mL: Borderline (suggest repeat in 48 hours) >10: Positive Approx HCG range (mU/mL) Weeks post LMP 5.4-708 mU/mL 3-4 Weeks 217-88346 mU/mL 5-6 Weeks 4059-127207 mU/mL 7-8 Weeks 41650-087042 mU/mL 9-10 Weeks 82479-67179 mU/mL 12-14 Weeks 12976-83684 mU/mL 15-16 Weeks 8240- 01316 mU/mL 17-18 Weeks ID Date Data Source [id number] 11/17/2020 12:56:00 PM [facility] Value Range Interpretation Code Description Data Bonnie rce(s) Supporting Document(s) Thyrotropin [Units/volume] in Serum or Plasma by Detec tion limit <= 0.05 mIU/L 2.07 uIU/mL 0.47 - 5.01 [facility] ID Date Data Source [id number] 11/17/2020 12:52:00 PM [facility] Value Range Interpretation Code Description Data Bonnie rce(s) Supporting Document(s) Prothrombin time (PT) 11.7 SECONDS 11.0 - 15.5 [facility] INR in Platelet poor plasma by Coagulation assay 0.82 0.93 - 1. 23 L [facility] aPTT in Blood by Coagulation assay 23.4 SECONDS 24.8 - 36.7 L [facility] \\BLDo\\INR INTERPRETATION\\BLDx\\ Therapeutic range for Coumadin and related oral anticoagulants. - International Normalized Ratio (INR): 2.0 - 3.0 for Venous Thrombosis, Pulmonary Embolus, Tissue heart valves, Acute CO Atrial Fibrillation, Valvular heart disease and recurrent Systemic Embolism. - International Normalized Ratio (INR): 2.5 - 3.5 for Mechanical Prosthetic valve. ID Date Data Source [id number] 11/17/2020 12:48:00 PM [facility] Name Value Range Interpretation Code Description Data Bonnie rce(s) Supporting Document(s) TROPONIN T <0.01 NG/ML 0.00 - 0.10 [facility] TROPONIN T0.1 ng/ml Recommended as the c linical threshold value forTroponin T. ID Date Data Source [id number] 11/17/2020 12:43:00 PM [facility] Name Value Range Interpretation Code Description Data Bonnie rce(s) Supporting Document(s) Fibrin D-dimer FEU [Mass/volume] in Platelet poor plasma 0.39 ug /mL 0.27 - 0.50 [facility] ID Date Data Source [id number] 11/17/2020 12:32:00 PM [facility] Name Value Range Interpretation Code Description Data Bonnie rce(s) Supporting Document(s) CBC W/AUTOMATED DIFF [facility] COMPLETE BLOOD COUNT Leukocytes [#/volume] in Blood by Automated count 17.9 10^3/uL 4.2 - 11.0 H [facility] Erythrocytes [#/volume] in Blood by Automated count 5.31 10^6/uL 4. 20 - 5.40 [facility] Hemoglobin [Mass/volume] in Blood 15.5 g/dL 12.0 - 16.0 [facility] Hematocrit [Volume Fraction] of Blood by Automated count 44.9 % 3 7.0 - 47.0 [facility] Erythrocyte mean corpuscular volume [Entitic volume] by Auto mated count 84.6 fL 81.0 - 101 [facility] Erythrocyte mean corpuscular hemoglobin [Entitic mass] by Automated count 29.2 pg 27.0 - 34.0 [facility] Erythrocyte mean corpuscular hemoglobin concentration [Mass/volume] by Automated count 34.5 g/dL 31.0 - 36.0 [facility] Erythrocyte distribution width [Ratio] by Automated count 10.8 % 11.5 - 14.5 L [facility] Platelets [#/volume] in Blood by Automated count 365 10^3/uL 150 - 45 0 [facility] Platelet mean volume [Entitic volume] in Blood by Automated count 9.1 fL 7.4 - 10.4 [facility] Neutrophils/100 leukocytes in Blood by Automated count 90.8 % 37. 0 - 80.0 H [facility] Lymphocytes/100 leukocytes in Blood by Manual count 4.7 % 25.0 - 40.0 L [facility] Monocytes/100 leukocytes in Blood by Automated count 3.6 % 3.0 - 8.0 [facility] Eosinophils/100 leukocytes in Blood by Automated count 0.3 % 0.0 - 7.0 [facility] Basophils/100 leukocytes in Blood by Automated count 0.3 % 0.0 - 2.5 [facility] %IG 0.3 % 0.0 - 0.0 H [facility] %NRBC 0.0 % 0.0 - 0.0 [facility] Neutrophils [#/volume] in Blood by Automated count 16.24 10^3/uL 2. 00 - 6.90 H [facility] Lymphocytes [#/volume] in Blood by Automated count 0.84 10^3/uL 0.60 - 3.40 [facility] Monocytes [#/volume] in Blood by Automated count 0.65 10^3/uL 0.00 - 0.90 [facility] Eosinophils [#/volume] in Blood by Automated count 0.05 10^3/uL 0.00 - 0.70 [facility] Basophils [#/volume] in Blood by Automated count 0.05 10^3/uL 0.00 - 0.20 [facility] #IG 0.06 10^3/uL 0.00 - 0.10 [facility] #NRBC 0.00 10^3/uL 0.00 - 0.00 [facility] MANUAL DIFF NOT INDICATED [facility] RBC MORPH NOT INDICATED [facility] ID Date Data Source [id number] 05/25/2020 12:00:00 AM EDT [facility] Name Value Range Interpretation Code Description Data Bonnie rce(s) Supporting Document(s) 2018-nCoV RNA XXX MIRIAM+probe-Imp [facility] This lab was ordered by [employer] and repo rted by [employer]. ID Date Data Source [id number] 05/04/2020 12:00:00 AM EDT [facility] Name Value Range Interpretation Code Description Data Bonnie rce(s) Supporting Document(s) 2018-nCoV RNA XXX MIRIAM+probe-Imp [facility] This lab was ordered by [employer] and repo rted by [employer]. ID Date Data Source [id number] 03/30/2020 12:00:00 AM EDT [facility] Name Value Range Interpretation Code Description Data Bonnie rce(s) Supporting Document(s) 2018-nCoV RNA XXX MIRIAM+probe-Imp [facility] This lab was ordered by [employer] and repo rted by [employer] ID Date Data Source [id number] 03/23/2020 12:00:00 AM EDT [facility] Name Value Range Interpretation Code Description Data Bonnie rce(s) Supporting Document(s) 2018-nCoV RNA XXX MIRIAM+probe-Imp [facility] This lab was ordered by [employer] and repo rted by [employer] ID Date Data Source [id number] 03/17/2020 12:00:00 AM EDT [facility] Name Value Range Interpretation Code Description Data Bonnie rce(s) Supporting Document(s) 2018-nCoV RNA XXX MIRIAM+probe-Imp [facility] This lab was ordered by [employer] and repo rted by [employer]. ID Date Data Source [id number] 02/26/2020 12:00:00 AM EDT [facility] Name Value Range Interpretation Code Description Data Bonnie rce(s) Supporting Document(s) 2018-nCoV RNA XXX MIRIAM+probe-Imp [facility] This lab was ordered by [employer] and repo rted by [employer]. Procedure Social History Code Duration Value Status Description Data Source(s ) Alcohol intake 11/17/2020 12:00:00 AM EST Ex-drinker (finding) comp leted Ex- drinker (finding) [facility] Smoking 11/17/2020 12:00:00 AM EST Never smoker completed Never s [facility] Vital Signs ID Date Data Source [id number] 11/17/2020 11:24:29 PM EST [facility] Name Value Range Interpretation Code Description Data Source(s) WEIGHT RECORDED 142 lb 142 lb [facility] Body height Measured 65 in 65 in [facility] TRANSFER FROM [facility] A [facility]
[2020-11-18 12:06] LABS: BASO % 0.5 % (0.0-1.0); EOS # 0.1 10^3/uL (0.0-0.5); HEMATOCRIT 38.8 % (36.0-47.0); HEMOGLOBIN 13.1 g/dl (12.0-15.5); LYMPH # 1.1 10^3/uL (1.5-5.0); LYMPH % 17.9 % (24.0-44.0); MEAN CORPUSCULAR HEMOGLOBIN 29.1 pg (27.0-33.0); MEAN CORPUSCULAR HGB CONC 33.8 g/dl (32.0-36.5); MEAN CORPUSCULAR VOLUME 86.2 fl (80.0-96.0); MONO # 0.3 10^3/uL (0.0-0.8); MONO % 5.3 % (2.0-8.0); NEUTROPHILS # 4.5 10^3/uL (1.5-8.5); NEUTROPHILS % 74.8 % (36.0-66.0); PLATELET COUNT, AUTOMATED 326 10^3/uL (150-450)
[2020-11-18 12:13] LABS: AMORPHOUS SEDIMENT SMALL (NEGATIVE); APPEARANCE, URINE HAZY (CLEAR); BACTERIA, URINE AUTO 1+ (NEGATIVE); BILIRUBIN, URINE AUTO NEGATIVE (NEGATIVE); BLOOD, URINE BLOOD NEGATIVE (NEGATIVE); COLOR, URINE YELLOW (YELLOW); GLUCOSE, URINE (UA) AUTO NEGATIVE (NEGATIVE); KETONE, URINE AUTO NEGATIVE (NEGATIVE); LEUKOCYTE ESTERASE, URINE AUTO NEGATIVE (NEGATIVE); MUCUS, URINE SMALL (NEGATIVE); NITRITE, URINE AUTO NEGATIVE (NEGATIVE); PROTEIN, URINE AUTO 1+ mg/dL (NEGATIVE); RBC, URINE AUTO 1 /HPF (0-3); SPECIFIC GRAVITY URINE AUTO 1.031 (1.002-1.035); SQUAMOUS EPITHELIAL CELL UR AU 2 /HPF (0-6); UROBILINOGEN, URINE AUTO 0.2 mg/dL (0.0-2.0); WBC, URINE AUTO 2 /HPF (0-3)
[2020-11-18] MEDS ORDERED: ACETAMINOPHEN 325 MG TAB PO ONE (12:15)
[2020-11-18] MEDS ORDERED: ONDANSETRON 4 MG ORAL DISINTEGRATING TAB PO ONE (12:15)
[2020-11-18 12:36] LABS: MONO REFLEX EBV COMP NEGATIVE (NEGATIVE)
--- OUTSIDE RECORDS SUMMARY | 2020-11-18 12:47 | CCD ---
Author Author [facility] Organization [facility] Address Unknown Phone Unavailable Care Team Providers Care Custom Bow Maker Name Role Phone [facility] Unavailable Unavailable DARWIN MORALES MD Unavailable Unavailable DARIWN MORALES MD Unavailable Unavailable DARWIN MORALES MD Unavailable Unavailable DARWIN MORALES MD Unavailable Unavailable DARWIN MORALES MD Unavailable Unavailable NON, PHYSICIAN STAFF Unavailable Unavailable Chepe J Modesto PA-C Unavailable Unavailable Cehpe, J Modesto PA-C Unavailable Unavailable Chepe, J [...] is protected by Article 27-F of the [facility] Public Health law. If you continue you may have access to information: Regarding HIV / AIDS; Provided by facilities licensed or operated by the [facility] Office of Mental Health; or Provided by the [facility] Office for People With Developmental Disabilities. If such information is present, then the following [facility] mandated warning applies: This information has [...] law may result in a fine or longterm sentence or both. A general authorization for the release of medical or other information is NOT sufficient authorization for further disc losure. Allergies and Adverse Reactions Type Description Substance Reaction Status Data Source(s ) Drug Class PENICILLINS Penicillin Rash [facility] Encounters Encounter Providers Location Date Indications Data Source(s ) Emergency Attender: DARWIN MORALES MD 2020 04:13:00 PM EST - 11/17/2020 11:24:00 PM EST Elevated white blood cell count, unspecified [facility] Elevated white blood cell count, unspeci fied Patient discharged. Outpatient Attender: [facility] Lab 11/17/2020 01:5 7:00 PM EST [facility] Emergency Attender: [place]esto LENTZCConsultant: STAFF NO N 11/17/2020 11:40:00 AM EST - 11/17/2020 05:53:00 PM [facility] Patient [facility]. Medications Medication Brand Name Start [...] of acetaminophen from all sources 75 mg/kg/day
[facility] Medication administered onsite Insurance Providers Payer name Policy type / Coverage type Policy ID Covered constitution party ID Covered constitution party's relationship to easton Policy [place] Plan Information [place] [employer] [id number] [facility] [id number] [place] [id number] Self [id number] [facility] HUMANA - O/P [id number] 19 [id number] [facility] HUMANA - O/P [id number] 19 [id number] [facility] HUMANA [facility] [id number] SF2 [id number] [facility] [id number] HUMANA H [id number] [place] E [id number] Self [id number] HUMANA [facility] O [id number] S [id number] [facility] [id number] SF2 [id number] Problems, Conditions, and Diagnoses Code Display Name Description Problem Type Effective Dates Data Source(s) R19.02 Left upper quadrant abdominal swelling, mass and lump Left upper quadrant abdominal swelling, mass and lump Diagnosis 11/17/2020 08:10:00 PM [facility] D72.829 Elevated white blood cell count, unspeci fied Elevated white blood cell count, unspecified Diagnosis 11/17/2020 08:10:00 PM [facility] 2 weeks rash, CP, SOB, N/V/D, abdominal pain - r/o hemangioma 2 weeks rash, CP, SOB, N/V/D, abdominal pain - r/o hemangioma Diagnosis 2020 08:10:00 PM [facility] Results ID Date Data Source [id number] 11/18/2020 10:04:00 AM [facility] [address] [place] [address] PHONE: [phone] FAX: [phone] Name .................. : TRAVIS FUCHS Acct Number.................. : [id number] ROOM. ................. : TR-02 MR Number ................... : [id number] Stay type ............. : E/R Discharge Date......... ... : 11/17/20 Admit Date ....... .. : 11/17/20 Admit Phys .................... : CHEPE LETY Date of ....... : 1995 Family Phys ................... : NON STAFF Phone .................. : [phone] Age ................................ : 25 Film# .................. .:[id number] Sex ................................. : F Unsigned transcriptions are preliminary reports and do not represent a medical or legal document CT ABD & PELVIS W/ IV ONLY [id number] COMPLETE:11/17/20 19:34 [facility] 4136 Reason(s): N/V/D w/ elevated WBC CT [...] or prior infarct. Page 1 of 2 [facility] [address] [place] [address] PHONE: [phone] FAX: [phone] Name .................. : TRAVIS FUCHS Acct Number.................. : [id number] ROOM. ................. : TR-02 MR Number ................... : [id number] Stay type ............. : E/R Discharge Date......... ... : 11/17/20 Admit Date ......... : 11/17/20 Admit Phys .................... : CHEPE LETY Date of ....... : 1995 Family Phys ................... : NON STAFF Phone .................. : [phone] Age ................................ : 25 Film# .................. .:[id number] Sex ................................. : F Unsigned transcriptions are preliminary reports and do not represent a medical or legal document CT ABD & PELVIS W/ IV ONLY 60278 COMPLETE:11/17/20 19:34 [facility] 4136 Reason(s): N/V/D w/ elevated WBC I [...] By Augustin Pryor M.D. , 11/18/20 10:04, [place] Transcribe Initials: DZ , Transcribe Date: 11/18/20 02:38, Dictation Date: Copy for: SRI CHAKRABORTY via fax Copy for: CHEPE Arita via fax Copy for: EMERGENCY DEPT via modem Copy for: 710 MED REC DISCHARGED Page 2 of 2 Name Value Range Interpretation Code Description Data Bonnie rce(s) Supporting Document(s) ID Date Data Source [id number] 11/18/2020 10:03:00 AM EST [facility] [address] [place] [address] PHONE: [phone] FAX: [phone] Name .................. : TRAVIS FUCHS Acct Number.................. : [id number] ROOM. ................. : TR-02 MR Number ................... : [id number] Stay type ............. : E/R Discharge Date......... ... : 11/17/20 Admit Date ....... .. : 11/17/20 Admit Phys .................... : CHEPE LETY Date of ....... : 1995 Family Phys ................... : NON STAFF Phone .................. : [phone] Age ................................ : 25 Film# .................. .:[id number] Sex ................................. : F Unsigned transcriptions are preliminary reports and do not represent a medical or legal document CT CTA CHEST NON-CORONARY W C 40932 COMPLETE:11/17/20 19:34 [facility] 4135 Reason(s): cp w/ sob w/ exertion [...] and Signed By Page 1 of 2 [facility] [address] [place] [address] [address] [place] [id number] PHONE: [phone] FAX: [phone] Name .................. : TRAVIS FUCHS Acct Number.................. : [id number] ROOM. ................. : TR-02 MR Number ................... : [id number] Stay type ............. : E/R Discharge Date......... ... : 11/17/20 Admit Date ......... : 11/17/20 Admit Phys .................... : CHEPE LETY Date of ....... : 1995 Family Phys ................... : NON STAFF Phone .................. : [phone] Age .......................... ...... : 25 Film# .................. .:[id number] Sex ................................. : F Unsigned transcriptions are preliminary reports and do not represent a medical or legal document CT CTA CHEST NON- CORONARY W C 85338 COMPLETE:11/17/20 19:34 [facility] 4135 Reason(s): cp w/ sob w/ exertion [...] rce(s) Supporting Document(s) ID Date Data Source [id number] 11/17/2020 11:40:00 AM EST [facility] 1 [facility] [address] [place] [address] Phone #: ext- [phone] 11/17/2020 11:27 Patient: SHILA ROBLES Sex: F : 1995 Age: 25yWEIGHT:64.4 kg (S) HEIGHT:65 inches (S) BMI:23.7ALLERGIES: PenicillinsCHIEF COMPLAINT: "hurts all over", possible, COVID-19 exposure:DIAGNOSIS: Problem, Cystitis, LeukocytosisLAB ORDERSOrder Description Priority Entered Acknowledged InitialedCBC w Diff STAT 12:04 11/17/2020 12:40 Matthew Browne.N. P.A.-C;CMP STAT 12:04 11/17/2020 12:40 Matthew Browne R.N. P.A.-C;Lipase STAT 12:04 11/17/2020 12:40 Matthew Browne R.N. P.A.-C;PT/PTT STAT 12:04 11/17/2020 12:40 Matthew Browne R.N. P.A.-C;Troponin-T STAT 12:04 11/17/2020 12:40 Matthew Browne.N. P.A.-C;D-Dimer STAT 12:04 11/17/2020 12:40 Matthew Browne.N. P.A.-C;TSH STAT 12:04 11/17/2020 12:40 Matthew Browne.N. P.A.- C;Influenza Nasal A B STAT 12:04 11/17/2020 12:40 Matthew Browne.N. P.A.-C;Rapid Strep Screen STAT 12:04 11/17/2020 12:40 Matthew Browne R.N. P.A.-C;HCG Serum Quant STAT 12:04 11/17/2020 12:40 Matthew Browne R.N. P.A.-C;CORONAVIRUS STAT 12:04 11/17/2020 12:40 Hollie, 2 [facility] [address] [place] [address] Phone #: ext- [phone] 11/17/2020 11:27 Patient: SHILA ROBLES Sex: F : 1995 Age: 25yCOVID-19 Matthew Bean R.N.(Symptomatic as P.A.-C;Defined by CDC)([id number])( Unknown if FristTest) (Hospitalized)(Unknown if) (NotResident inCongregate [...] Garcia RN P.A.-C;Monospot STAT 15:39 11/17/2020 15:54 aMtthew Browne R.N. P.A.-C;COVID-19 CAH STAT 15:54 11/17/2020 16:33 Hollie,(Symptomatic as Matthew Bean R.N.Defined by CDC) P.A.-C;([id number]) (FirstTest) (NotHospitalized) (Not) (NotResident inCongregate CareSetting) (NotEmployed inHealthcare Setting) NOTES: Potential transfer 3 [facility] [address] [place] [address] Phone #: ext- [phone] 11/17/2020 11:27 Patient: SHILA ROBLES Sex: F [...] C;Rocephin 16:11 11/17/2020 16:33 Sorbero,(1gm/50mL) IVPB Matthew HeckNMaren1000 mg with P.A.-C;Dextrose 50 mlspike bag (D5W) Reason for ordering with alerts: Benefits outweigh risks -- 16:11 11/17/2020 Matthew RamosAMaren-CGENERAL ORDERSOrder Description Priority Entered Acknowledged InitialedBlood Pressure 12:04 11/17/2020 12:08 [place] ED[facility] Cathy Yao.A.-C; Hkkb7Tyllati Monitor 12:04 11/17/2020 12:08 [place] ED(continuous) Cathy Yao 4 [facility] [address] [place] [address] Phone #: ext- [phone] 11/17/2020 11:27 Patient: SHILA ROBLES Sex: F : 1995 Age: 25y P.A.-C; Euha3QFG 12:04 11/17/2020 12:08 [place] ED Cathy Yao P.A.-C; Dmdc3NSP 12:04 11/17/2020 12:40 Matthew Browne R.N. P.A.-C;Obtain Old EKG 12:04 11/17/2020 12:40 Matthew Browne R.N. P.A.-C;Obtain Old Records 12:04 11/17/2020 12:40 Matthew Browne R.N. P.A.-C;Pulse oximeter 12:04 11/17/2020 12:40 Hollie,(Continuous) Matthew Bean R.N., P.A.-C;Saline Lock 12:04 11/17/2020 12:40 Matthew Browne R.N., P.A.-C;Vitals 12:04 11/17/2020 12:40 Matthew Browne R.N., P.A.-C;[Electronically signed by Vikas Browne R.N. (19:08 0 11/17/2020)][Electronically signed by Matthew Fierro P.A.-C (22:46 11/17/2020)][Electronically locked by Vikas Browne R.N. (19:08 11/17/2020)] Name Value Range Interpretation Code Description Data Bonnie rce(s) Supporting Document(s) ID Date Data Source [id number] 11/17/2020 11:40:00 AM EST [facility] 1 Medication Reconciliation Report [facility] [address] [place] [address] Phone #: ext- [phone] 11/17/2020 11:27 Patient: [...] bolus 0, then 1000 mL/hr, administered: 12:42 11/17/2020enadryl [IVP] IVP 25 mg, administered: 12:42 11/17/2020IV NS IV Fluids bolus 0, then 75 mL/hr, administered: 13:48 1ROCEPHIN (1GM/50ML) [IVPB] IVPB bolus 0, then 1 gm 100 mL/hr, administered: 16:33 11/17/2020The following Medications were prescribed to the patient:None. Name Value Range Interpretation Code Description Data Bonnie rce(s) Supporting Document(s) ID Date Data Source [id number] 11/17/2020 11:40:00 AM EST [facility] 1 Medication Administration Record [facility] [address] [place] [address] Phone #: ext- [phone] 11/17/2020 11:27 Patient: SHILA ROBLES Sex: F : 1995 Age: 25yWeight: 64.4 kgHeight/Length: 65 inBMI: 23.7ALLERGIES: Penicillins Date/Time Medication Administered Medication OrderedStart IV NS IV NS : Bolus 1000 mL, then 7512:42 11/17/2020 Dose: IV Fluids mL/Vikas Loyd, R.N. Rate: 1000 mL/hr over 1 hour(s)---- Dispensed: 1000 mL bagStop Site: #1 left AC13:48 11/17/2020iVkas valentin, R.N.Start IV NS IV NS : [...] ACStart ROCEPHIN (1GM/50ML) [IVPB] Rocephin (1gm/50mL) IVPB 488331:33 11/17/2020 (CEFTRIAXONE SODIUM) mg with Dextrose 50 ml spike Vikas Richards RFidelia Dose: 1 gm IVPB (D5W)---- Rate: 100 mL/hr over 30 minute(s)Stop Dispensed: 50 mL bag17:38 11/17/2020 Site: #1 left Vikas Love RFidelia Name Value Range Interpretation Code Description Data Bonnie rce(s) Supporting Document(s) ID Date Data Source [id number] 11/17/2020 11:40:00 AM EST [facility] 1 General Instructions [facility] [address] [place] [address] Phone #: ext- [phone] 11/17/2020 11:27 Patient: [...] to prevent it (seebelow). 2 General Instructions [facility] [address] [place] [address] Phone #: ext- [phone] 11/17/2020 11:27 Patient: [...] will be told of 3 General Instructions [facility] [address] [place] [address] Phone #: ext- [phone] 11/17/2020 11:27 Patient: SHILA ROBLES Sex: F : 1995 Age: 25yany findings that may affect your child's care.Call [phone] 900if any of these occur: Trouble breathing Trouble [...] color to the skin or eyes (jaundice) [phone] [employer]. [address] [place] [address]. All rights reserved. This information is not intended as asubstitute for professional medical care. Always follow your healthcare professional's instructions.Blood in the Urine 4 General Inst[facility] [address] [place] [address] Phone #: ext- [phone] 11/17/2020 11:27 Patient: SHILA ROBLES Sex: F [...] these medicines.Follow- up care 5 General Instructions [facility] [address] [place] [address] Phone #: ext- [phone] 11/17/2020 11:27 Patient: SHILA ROBLES Sex: F : 1995 Age: 25yFollow up [...] the nose or gums or easy bruising [phone] [employer]. [address] [place] [address]. All rights reserved. This information is not intended as asubstitute for professional medical care. Always follow your healthcare professional's instructions. You have been given the following additional information: Bladder Infection, Female (Child) Hematuria(Electronically signed by Matthew Fierro P.A.-C 11/17/2020 22:46) Name Value Range Interpretation Code Description Data Bonnie rce(s) Supporting Document(s) ID Date Data Source [id number] 11/17/2020 11:40:00 AM EST [facility] 1 Clinical Report - Nurses [facility] [address] [place] [address] Phone #: ext- [phone] 11/17/2020 11:27 Patient: SHILA ROBLES Sex: F [...] so she decided to get checked out.).Treatment BODY AND FENDER MECHANIC:None.SEPSIS SCREEN: SIRS SCREEN NEGATIVE. SEPSIS SCREEN NEGATIVE. [...] 11/17/20 Rachelle Ruff R.N.AllergiesPenicillins. --11:32 11/17/20 Rachelle Ruff R.N.PROBLEMS:Migraine Headache. --11:33 11/17/20 Rachelle Ruff R.N.ADDITIONAL SURGERIES:Jaw surgery. --11:33 11/17/20 Rachelle Ruff R.N.[facility] ory 2 Clinical Report - Nurses [facility] [address] [place] [address] Phone #: ext- [phone] 11/17/2020 11:27 Patient: [...] treatment room. --11:35 11/17/20 Rachelle Ruff R.N.PHYSICAL LTRYOWPKUP61:53 11/17/20. Ambulatory to room. Patient gowned.GENERAL / [...] Call light 3 Clinical Report - Nurses [facility] [address] [place] [address] Phone #: ext- [phone] 11/17/2020 11:27 [id number] Sex: [facility] : 1995 Age: 25yplaced in reach. Bed placed in lowest position. Brakes of bed on. --11:54 11/17/20 Vikas Russo R.N.Patient ready for evaluation- PA notified. --11:54 11/17/20 Vikas Browne R.N.EKG time: (12:16 11/17/2020). EKG was performed by a evelin and shown to the PA. --12:22 11/17/20 [facility] Vfgl925:29 11/17/20. BP: 109/65. MAP: 79. HR: 92. RR: 20. O2 saturation: 100%. --12:30 11/17/20 [facility] Oqle774:41 11/17/2020 Site #1 started via IV in the left antecubital space with an 20g angiocath, with aseptictechnique and good blood return; one attempt. Saline lock flushed with 10 mL saline. --12:41 11/17/20Vikas Browne R.NMaren12:41 11/17/2020 Zofran IVP 4 mg was refused [...] and precautions. Verbalizesunderstanding. --12:42 11/17/20 Vikas Browne R.N.12:42 11/17/2020 Benadryl (diphenhydrAMINE HCl) IVP 25 mg given over 2 minute(s) via site #1. Allergiesverified and confirmed 5 rights. IV patency established. IV site checked: no pain, redness, or swelling. IVflushed thoroughly pre- and post-medication administration. IVP given by RN. Information reviewed withpatient including reason for taking this medication, signs of allergic reaction, precautions and sedativewarning. Verbalizes understanding. --12:42 11/17/20 Vikas Browne R.NMaren13:00 11/17/20. BP: 107/74. MAP: 85. HR: 92. RR: 17. O2 saturation: 100%. --13:00 11/17/20 [facility] Adwk599:32 11/17/20. Reassurance given. Reassessment acuity: LEVEL 3. [...] precautions. Verbalizes 4 Clinical Report - Nurses [facility] [address] [place] [address] Phone #: ext- [phone] 11/17/2020 11:27 Patient: SHILA ROBLES Sex: F : 1995 Age: 25y understanding. --13:48 11/17/20 Vikas Browne R.N. 13:48 11/17/2020 IV Fluids IV NS via IV site #1 Discontinued: bag #1 completed. Total amount infused: 1000 mL. IV patency established. IV site checked: no pain, redness, or swelling. IV flushed thoroughly. --13:48 11/17/20 Vikas Browne R.N. 14:14 11/17/20. BP: 107/66. MAP: 79. HR: 97. RR: 19. O2 saturation: 100%. --14:14 11/17/20 Jessica Prieto , MYRIAM Morgan Tech1 Critical value relayed by [...] RHeather.DISPOSITION / DISCHARGE 17:00 11/17/20. Transferred to [facility]. Report was given to a nurse via [...] risk factors identified. Transported via ambulance by retail associate manager bilingual. --17:43 11/17/20 Vikas Browne R.N. 17:42 11/17/20. BP: 111/60. MAP: 77. HR: 97. RR: 16. O2 saturation: 100%. Temp: 99.2 F. Pain level 5 Clinical Report - Nurses [facility] [address] [place] [address] Phone #: ext- [phone] 11/17/2020 11:27 [id number] Sex: F : 1995 Age: 25y now: 010. --17:43 11/17/20 Vikas Browne R.N. Departure time: 17:53 11/17/2020. --17:53 11/17/20 Vikas Browne R.N.Locked/Released at 11/17/2020 19:08 by Vikas Browne R.N. Name Value Range Interpretation Code Description Data Bonnie rce(s) Supporting Document(s) ID Date Data Source [id number] 11/17/2020 11:40:00 AM EST [facility] 1 Clinical Report - Physicians/Mid Levels [facility] [address] [place] [address] Phone #: ext- [phone] 11/17/2020 11:27 Patient: [...] EXAM 2 Clinical Report - Physicians/Mid Levels [facility] [address] [place] [address] Phone #: ext- [phone] 11/17/2020 11:27 Patient: SHILA ROBLES Sex: F [...] Negat 3 Clinical Report - Physicians/Mid Levels [facility] [address] [place] [address] Phone #: ext- [phone] 11/17/2020 11:27 Patient: [...] 10.2) 4 Clinical Report - Physicians/Mid Levels [facility] [address] [place] [address] Phone #: ext- [phone] 11/17/2020 11:27 Patient: [...] Male GFR Interprentation 20-49 yrs >60 mL/min Jjckze57-59 yrs >56 mL/min Normal 60-69 yrs >49 mL/min Normal 70-79yrs>42 mL/min Normal 80 and above >35 mL/min Normal Female GFRInterpretation 20-39 yrs >60 mL/min Normal 40-49 yrs >58 mL/minNormal 50- 59 yrs >51 mL/min Normal 60-69 yrs >45 mL/min Oqubmi95-88 yrs >39 mL/min Normal 80 and above [...] VenousThrombosis, Pulmonary Embolus, Tissue heart valves, Acute [place] Atrial Fibrillation, Valvular heart diseaseand recurrent Systemic Embolism. -International Normalized Ratio (INR): 2.5 - 3.5 forMechanical Prosthetic valve.Troponin-T: (EARL: 11/17/2020 12:15) ( KsgRcvd 11/17/2020 12:48) Final results Test Result Flag Units (Reference) TROPONIN T <0.01 NG/ML (0.00 - 0.10) TROPONIN T0.1 ng/ml Recommended as the clinical threshold value forTroponin T.D-Dimer: (EARL: 11/17/2020 12:15) ( KsgRcvd 11/17/2020 12:43) Final results Test Result Flag Units (Reference) D- DIMER QUANT 0.39 ug/mL (0.27 - 0.50)TSH: (EARL: 11/17/2020 12:15) ( KsgRcvd 0 11/17/2020 12:56) Final results Test Result Flag Units (Reference) TSH 2.07 uIU/mL (0.47 - 5.01)Influenza Nasal A B: (EARL: 11/17/2020 12:20) ( MsgRcvd 11/17/2020 13:12) Final results Test Result Flag Units (Reference) INFLUENZA A NEGATIVE (NORMAL: NEGAT INFLUENZA B NEGATIVE (NORMAL: NEGAT INFLUENZA A REENTER NEGATIVE (NORMAL: NEGAT INFLUENZA B REENTER NEGATIVE (NORMAL: NEGAT PROCEDURAL CONTROL VALID KIT LOT # _[id number] 11/17/20.1311 . KIT EXP DATE _10.08.21 11/17/20.1311. .The Influenza A utilizing an isothermal nucleic acid amplification technology for thequalitativedetection of influenza A and B viral RNA.Negative results do not preclude influenza virus infection and should 5 Clinical Report - Physicians/Mid Levels [facility] [address] [place] [address] Phone #: ext- [phone] 11/17/2020 11:27 Patient: [...] PROCEDURAL CONTROL VALID ){ KIT LOT # [id number] ){ KIT EXP DATE 10.08.21 )The Strep [...] Weeks post LMP 5.4-708 mU/mL 3-4 Weeks 217-09643 mU/mL 5-6 Weeks 4059-606544 mU/mL 7-8 Weeks 22676-351616 mU/mL 9-10 Weeks 89088-33558 mU/mL 12-14 Weeks 99882-09617 mU/mL 15-16 Weeks 8240-52059 mU/mL 17-18 Weeks.PROGRESS AND PROCEDURESCourse of Care: VSS, NAD, AOx3, interacting well and appropriately, no use of accessory muscle, able tospeak full sentences, stable, non-toxic looking. Enter room and pt lying peacefully in bed in NAD. Patient stable. Denies any new issues, concerns, or complaints. Pt c/o N/V/D with flucuating rash with fever, cough, and general malaise. Pt does travel to [place] and does take OCP. sts that she [...] casue. Attending agrees. Called ERIKA and discussed wiht Asha. Able to do au to accept under Dr. Paez 6 Clinical Report - Physicians/Mid Levels [facility] [address] [place] [address] Phone #: ext- [phone] 11/17/2020 11:27 Patient: SHILA ROBLES Sex: F [...] to transfer explained to patient. Transferred to [facility]. UTI (catheter associated) was not present prior [...] rce(s) Supporting Document(s) ID Date Data Source [id number] 11/17/2020 09:33:00 PM [facility] [address] [facility] [place] [address] RESPIRATORY CARE REPORT ==== ---------NAME------- NUMBER SEX AGE ADMIT DISCMaren XRAY# F/C MICH FUCHS [id number] F 25 11/17/20 11/17/20 [id number] SB4 E/R DATE OF : 1995 M/R# [id number] PH#: [phone] TR-02 LOCATION: EMERGENCY DEPT EKG [id number] COMP LETE:11/17/20 13:[place] [id number] PHYSICIAN: CHEPE FIERRO CH Name Value Range Interpretation Code Description Data [facility] Supporting Document(s) ID Date Data Source [id number] 11/17/2020 05:31:00 PM [facility] NOT DETECTEDNOT DETECTED{ PROC EDURAL CONTROL VALID [...] Name Value Range Interpretation Code Description Data [facility] Supporting Document(s) ID Date Data Source [id number] 11/17/2020 03:32:00 PM [facility] Name Value Range Interpretation Code Description Data [facility](s) Supporting Document(s) [facility]AL[facility]IS [facility] [place] NORMAL: Yellow [facility] CLARITY hazy NORMAL: Clear [facility] Specific gravity of Urine by Test strip 1.025 1.001 - 1.030 [facility] pH 5 5 - 9 [facility] Glucose [Mass/volume] in Urine by Test strip NORM NORMAL: Negat [facility] Bilirubin.total [Presence] in Urine by Test strip NEG NORMAL: Negative [facility] Ketones [Presence] in Urine by Test strip 15 NORMAL: Negative A [facility] Protein [Mass/volume] in Urine by Test strip 15 NORMAL: Negat [facility] Nitrite [Presence] in Urine by Test strip NEG NORMAL: Negative [facility] BLOOD 10 NORMAL: Negative [facility] Leukocyte esterase [Presence] in Urine by Test strip NEG JA L: Negative [facility] Urobilinogen [Mass/volume] in Urine by Test strip NOR less ruthann n 1.0 mg/dL [facility] MICROSCOPIC See Below [facility] ital WBC 1 - 3 NORMAL: NONE SEEN Health system Erythrocytes [#/volume] in Urine by Test strip 1 - 3 NORMAL: NON E SEEN [facility] EPITHELIAL MODERATE NORMAL: NONE SEEN [facility] Bacteria [Presence] in Urine sediment by Light microscopy Tr vivi NORMAL: NONE SEEN [facility] Amorphous sediment [Presence] in Urine sediment by Light tyesha roscopy 3+ NORMAL: NONE SEEN [facility] ID Date Data Source [id number] 11/17/2020 03:55:00 PM [facility] Name Value Range Interpretation Code Description Data Bonnie rce(s) Supporting Document(s) Lactic w Rfx (if elevated) 2.5 mmol/L 0.5-2.0 Above high normal [facility] Called to EDDY BRO @ 1554 by Zhanna Pierson. Resultsread back. ID Date Data Source [id number] 11/17/2020 09:00:00 PM [facility] Name Value Range Interpretation Code Description Data Bonnie rce(s) Supporting Document(s) LACTIC ACID (LACTATE) [facility] CALLED TO RADHA 11/17/20 @ 1600 TEST PE RFORMED AT [id number] [place] [address] CLIA# [id number] SEE SCANNED REPORT ID Date Data Source [id number] 11/17/2020 01:12:00 PM [facility] Name Value Range Interpretation Code Description Data Bonnie rce(s) Supporting Document(s) Influenza virus A Ag [Presence] in Nasopharynx by Immunoassa y NEGATIVE NORMAL: NEGATIVE [facility] Influenza virus B Ag [Presence] in Nasopharynx by Immunoassa y NEGATIVE NORMAL: NEGATIVE [facility] NEGATIVENEGATIVE PROCEDURAL CO NTROL VALID KIT LOT # _[id number] 11/17/20.1311. . KIT EXP DATE _10.08.21 11/17/20. .The Influenza A & B assay is a rapid molecular in vitro diagnostic testutilizing an isothermal nucleic acid amplification technology for thequalitative detection of influenza A and B viral RNA.Negative results do not preclude influenza virus infection and should not beused as the sole basis for diagnosis, treatment or other patient managementdecisions. ID Date Data Source [id number] 11/17/2020 01:07:00 PM [facility] Name Value Range Interpretation Code Description Data Bonnie rce(s) Supporting Document(s) RAPID STREP NEGATIVE NORMAL: NEGATIVE [facility] RAPID STREP REENTER NEGATIVE NORMAL: NEGATIVE [facility] { PROCEDURAL CONTROL VALID ){ KIT LOT # [id number] ){ KIT EXP DATE 10.08.21 )The Strep [...] basis for treatment. ID Date Data Source [id number] 11/17/2020 04:14:00 PM [facility] Value Range Interpretation Code Description Data Bonnie rce(s) Supporting Document(s) MONO TEST NEGATIVE NORMAL: NEGATIVE [facility] MONO REENTER NEGATIVE NORMAL: NEGATIVE [facility] { KIT LOT # [id number] ){ KIT EXP DATE 01.04.21 ){ PROCEDURAL CONTROL VALID ) ID Date Data Source [id number] 11/17/2020 01:07:00 PM [facility] Value Range Interpretation Code Description Data Bonnie rce(s) Supporting Document(s) Lipase [Enzymatic activity/volume] in Serum or Plasma 17 U/L 13 - 60 [facility] ID Date Data Source [id number] 11/17/2020 01:07:00 PM EST [facility] Name Value Range Interpretation Code Description Data Bonnie rce(s) Supporting Document(s) COMPREHENSIVE METABOLIC PANEL [facility] COMPREHENSIVE METABOLIC PANEL Sodium [Moles/volume] in Serum or Plasma 136 mEq/L 134 - 153 [facility] Potassium [Moles/volume] in Serum or Plasma 3.8 mEq/L 3.6 - 5.0 [facility] Chloride [Moles/volume] in Serum or Plasma 99 mEq/L 98 - 107 [facility] Carbon dioxide, total [Moles/volume] in Serum or Plasma 24 MEQ/L 22 - 30 [facility] Glucose [Mass/volume] in Serum or Plasma 92 MG/DL 70 - 99 [facility] BUN 11 MG/DL 7 - 21 [facility] al Creatinine [Mass/volume] in Serum or Plasma 0.9 MG/DL 0.7 - 1.5 [facility] BUN/CREAT 12 8 - 27 [facility] Protein [Mass/volume] in Serum or Plasma 6.9 G/DL 6.3 - 8.2 [facility] Albumin [Mass/volume] in Serum or Plasma 4.5 G/DL 3.9 - 5.0 [facility] Globulin [Mass/volume] in Serum by calculation 2.4 GM/DL 2.4 - 3.2 [facility] A/G RATIO 1.9 0.8 - 2.0 [facility] Calcium [Mass/volume] in Serum or Plasma 9.6 MG/DL 8.4 - 10.2 [facility] Bilirubin.total [Mass/volume] in Serum or Plasma <0.7 MG/DL 0.2 - 1.3 [facility] Alkaline phosphatase [Enzymatic activity/volume] in Serum or Plasma 73 U/L 38 - 126 [facility] Aspartate aminotransferase [Enzymatic activity/volume] in Serum or Plasma 18 U/L 5 - 40 [facility] Alanine aminotransferase [Enzymatic activity/volume] in Seru m or Plasma 24 U/L 7 - 56 [facility] Anion gap 3 in Serum or Plasma 13.0 mmol/L 8.0 - 16.0 [facility] AGE [address] [facility] al NON-AA GFR >60 mL/min [facility] ital AFR AMER GFR >60 mL/min [facility] Ho spital Male GFR In terprentation [...] >32 mL/min Normal ID Date Data Source [id number] 11/17/2020 12:56:00 PM [facility] Value Range Interpretation Code Description Data Bonnie rce(s) Supporting Document(s) Choriogonadotropin.intact [Units/volume] in Serum or Plasma <0.5 mIU/ mL [facility] Interpr etation: Less than 5 mU/mL: Negative 6-10 mU/mL: Borderline (suggest repeat in 48 hours) >10: Positive Approx HCG range (mU/mL) Weeks post LMP 5.4-708 mU/mL 3-4 Weeks 217-22347 mU/mL 5-6 Weeks 4059-696803 mU/mL 7-8 Weeks 23998-778986 mU/mL 9-10 Weeks 98394-01343 mU/mL 12-14 Weeks 44691-86819 mU/mL 15-16 Weeks 8240- 44056 mU/mL 17-18 Weeks ID Date Data Source [id number] 11/17/2020 12:56:00 PM [facility] Value Range Interpretation Code Description Data Bonnie rce(s) Supporting Document(s) Thyrotropin [Units/volume] in Serum or Plasma by Detec tion limit <= 0.05 mIU/L 2.07 uIU/mL 0.47 - 5.01 [facility] ID Date Data Source [id number] 11/17/2020 12:52:00 PM [facility] Value Range Interpretation Code Description Data Bonnie rce(s) Supporting Document(s) Prothrombin time (PT) 11.7 SECONDS 11.0 - 15.5 [facility] INR in Platelet poor plasma by Coagulation assay 0.82 0.93 - 1. 23 L [facility] aPTT in Blood by Coagulation assay 23.4 SECONDS 24.8 - 36.7 L [facility] \\BLDo\\INR INTERPRETATION\\BLDx\\ Therapeutic range for Coumadin and related oral anticoagulants. - International Normalized Ratio (INR): 2.0 - 3.0 for Venous Thrombosis, Pulmonary Embolus, Tissue heart valves, Acute [place] Atrial Fibrillation, Valvular heart disease and recurrent Systemic Embolism. - International Normalized Ratio (INR): 2.5 - 3.5 for Mechanical Prosthetic valve. ID Date Data Source [id number] 11/17/2020 12:48:00 PM [facility] Name Value Range Interpretation Code Description Data [facility] rce(s) Supporting Document(s) TROPONIN T <0.01 NG/ML 0.00 - 0.10 [facility] ospital TROPONIN T0.1 ng/ml Recommended as the c linical threshold value forTroponin T. ID Date Data Source [id number] 11/17/2020 12:43:00 PM [facility] Name Value Range Interpretation Code Description [facility] Supporting Document(s) Fibrin D-dimer FEU [Mass/volume] in Platelet poor plasma 0.39 ug /mL 0.27 - 0.50 [facility] ID Date Data Source [id number] 11/17/2020 12:32:00 PM [facility] Name Value Range Interpretation Code Description Data [facility] Supporting Document(s) CBC W/AUTOMATED DIFF [facility] COMPLETE BLOOD COUNT Leukocytes [#/volume] in Blood by Automated count 17.9 10^3/uL 4.2 - 11.0 H [facility] Erythrocytes [#/volume] in Blood by Automated count 5.31 10^6/uL 4. 20 - 5.40 [facility] Hemoglobin [Mass/volume] in Blood 15.5 g/dL 12.0 - 16.0 [facility] Hematocrit [Volume Fraction] of Blood by Automated count 44.9 % 3 7.0 - 47.0 [facility] Erythrocyte mean corpuscular volume [Entitic volume] by Auto mated count 84.6 fL 81.0 - 101 [facility] Erythrocyte mean corpuscular hemoglobin [Entitic mass] by Automated count 29.2 pg 27.0 - 34.0 [facility] Erythrocyte mean corpuscular hemoglobin concentration [Mass/volume] by Automated count 34.5 g/dL 31.0 - 36.0 [facility] Erythrocyte distribution width [Ratio] by Automated count 10.8 % 11.5 - 14.5 L [facility] Platelets [#/volume] in Blood by Automated count 365 10^3/uL 150 - 45 0 [facility] Platelet mean volume [Entitic volume] in Blood by Automated count 9.1 fL 7.4 - 10.4 [facility] Neutrophils/100 leukocytes in Blood by Automated count 90.8 % 37. 0 - 80.0 H [facility] Lymphocytes/100 leukocytes in Blood by Manual count 4.7 % 25.0 - 40.0 L [facility] Monocytes/100 leukocytes in Blood by Automated count 3.6 % 3.0 - 8.0 [facility] Eosinophils/100 leukocytes in Blood by Automated count 0.3 % 0.0 - 7.0 [facility] Basophils/100 leukocytes in Blood by Automated count 0.3 % 0.0 - 2.5 [facility] %IG 0.3 % 0.0 - 0.0 [facility] %[facility] 0.0 % 0.0 - 0.0 [facility] al Neutrophils [#/volume] in Blood by Automated count 16.24 10^3/uL 2. 00 - 6.90 H [facility] Lymphocytes [#/volume] in Blood by Automated count 0.84 10^3/uL 0.60 - 3.40 [facility] Monocytes [#/volume] in Blood by Automated count 0.65 10^3/uL 0.00 - 0.90 [facility] Eosinophils [#/volume] in Blood by Automated count 0.05 10^3/uL 0.00 - 0.70 [facility] Basophils [#/volume] in Blood by Automated count 0.05 10^3/uL 0.00 - 0.20 [facility] #IG 0.06 10^3/uL 0.00 - 0.10 [facility] #NRBC 0.00 10^3/uL 0.00 - 0.00 [facility] MANUAL DIFF NOT INDICATED [facility] RBC MORPH NOT INDICATED [facility] ID Date Data Source [id number] 05/25/2020 12:00:00 AM EDT [facility] Name Value Range Interpretation Code Description Data Bonnie rce(s) Supporting Document(s) 2018-nCoV RNA XXX MIRIAM+probe-Imp [facility] This lab was ordered by [employer] and repo rted by [employer]. ID Date Data Source [id number] 05/04/2020 12:00:00 AM EDT [facility] Name Value Range Interpretation Code Description Data Bonnie rce(s) Supporting Document(s) 2018-nCoV RNA XXX MIRIAM+probe-Imp [facility] This lab was ordered by [facility] and repo rted by [employer]. ID Date Data Source [id number] 03/30/2020 12:00:00 AM EDT [facility] Name Value Range Interpretation Code Description Data Bonnie rce(s) Supporting Document(s) 2018-nCoV RNA XXX MIRIAM+probe-Imp [facility] This lab was ordered by [employer] and repo rted by [employer]. ID Date Data Source [id number] 03/23/2020 12:00:00 AM EDT [facility] Name Value Range Interpretation Code Description Data Bonnie rce(s) Supporting Document(s) 2018-nCoV RNA XXX MIRIAM+probe-Imp [facility] This lab was ordered by [employer] and repo rted by [employer]. ID Date Data Source [id number] 03/17/2020 12:00:00 AM EDT [facility] Name Value Range Interpretation Code Description Data Bonnie rce(s) Supporting Document(s) 2018-nCoV RNA XXX MIRIAM+probe-Imp [facility] This lab was ordered by [employer] and repo rted by [employer]. ID Date Data Source [id number] 02/26/2020 12:00:00 AM EDT [facility] Name Value Range Interpretation Code Description Data Bonnie rce(s) Supporting Document(s) 2018-nCoV RNA XXX MIRIAM+probe-Imp [facility] This lab was ordered by [employer] and repo rted by [employer]. Procedure Social History Code Duration Value Status Description Data Source(s ) Alcohol intake 11/17/2020 12:00:00 AM EST Ex-drinker (finding) comp leted Ex- drinker (finding) [facility] Smoking 11/17/2020 12:00:00 AM EST Never smoker completed Never s [facility] Vital Signs ID Date Data Source [id number] 11/17/2020 11:24:29 PM [facility] Name Value Range Interpretation Code Description Data Source(s) WEIGHT RECORDED 142 lb 142 lb [facility] Body height Measured 65 in 65 in [facility] TRANSFER FROM [facility]
[2020-11-18] MEDS ORDERED: ONDA4TAB6 PO (13:01)
[2020-11-18] MEDS ORDERED: ULTR50TA8 PO (13:01)
[2020-11-18 13:09] VITALS: BP 111/70
[2020-11-19 14:13] LABS: EBV VIRAL CAPSID AG IgM <36.0 U/mL (0.0-35.9)
== END 2020-11-18 13:10 | disposition home or self-care (01) ==
LOC: M ED 10:59
DX: D73.89 Other diseases of spleen (principal); Z88.0 Allergy status to penicillin; Z79.3 Long term (current) use of hormonal contraceptives
CPT/HCPCS: 36415; 80047; 81001; 84702; 85025; 86308; 86664; 86665; 99283; Q0162